=== PATIENT | female | born 1960 | race Caucasian/White ===

== ENCOUNTER → 2018-03-23 10:52 | Outpatient (CLI) | payer MEDICARE, SELFPAY ==
--- NOTE | 2018-03-23 11:02 | XR_ITS ---
XR chest 2V HISTORY: ITS.REASON: BRONCHITIS ORDERING PHYSICIAN: Kya Starks PATIENT AGE: 57 years COMPARISON: 05/07/2009 FINDINGS: The cardiomediastinal silhouette and pulmonary vascularity are within normal limits. The lungs are clear without infiltrates, suspicious nodules, or pleural effusions. No acute bony abnormalities. IMPRESSION: Negative chest, no acute finding
== END ==
PROVIDERS: PCP Nurse Practitioner Family; Visit Provider Nurse Practitioner Family
DX: J20.9 Acute bronchitis, unspecified (principal)
CPT/HCPCS: 71046

== ENCOUNTER → 2018-10-19 09:26 | Outpatient (CLI) | payer MEDICARE, SELFPAY ==
--- NOTE | 2018-10-19 09:30 | MM_ITS ---
MM Dig screening mamm BI w/CAD CAD Screening COMPARISON: Analog mammograms 09/15/2008 INDICATION: There is no personal or family history of breast cancer TECHNIQUE: Standard CC and MLO images were obtained. R2 CAD reviewed. FINDINGS: Moderate fibroglandular densities are seen in the central portions of both breasts. There are couple benign-appearing calcifications right breast. There is no suspicious lesion and there are no suspicious microcalcifications. IMPRESSION: Moderate breast density with no suspicious lesion seen BI-RADS Category: 2 Benign Finding(s) RECOMMENDED FOLLOW-UP: 1YR - 1 YEAR FOLLOW-UP (A letter has been sent to the patient regarding results of the study.)
--- NOTE | 2018-10-19 09:30 | CT_ITS ---
CT lung screening EXAM: CT LUNG LOW DOSE WO CONTRAST HISTORY: 30 pack-year smoking history, asymptomatic for lung cancer ITS.REASON: CURRENT TOBACCO USE ORDERING PHYSICIAN: Alexandre Frank MD PATIENT AGE: 58 years COMPARISON: None TECHNIQUE: The exam was performed on a GE Light Speed [address] scanner using 2.90 mGy CTDI. A low dose helical CT CHEST was performed on a multi-detector scanner. All CT scans at the facility use one or more dose reduction, viz: automated exposure control, ma/kV adjustment per patient size (including targeted exams where dose is matched to indication, i.e. head), or iterative reconstruction technique. The LDCT was performed in a facility that meets the criteria for the screening program. Data regarding this exam was submitted to ACR which is an approved registry. The order for this exam indicates that it came as a result of a lung cancer screening counseling shard decision-making visit that included all the elements required of such a visit including smoking cessation. The radiologist interpreting this exam meets the CMS criteria for the LDCT lung cancer screening program. The exam is reported using the Lung-RADS classification scale and reported to the ACR registry. NOTE: This study was performed for the specific purposes of lung cancer screening and is not an alternative to diagnostic chest CT. RADIATION DOSE: CTDI vol(CT dose Index-volume) = 2.90mG DLP (Dose Length Product) = 102.64 mGcm FINDINGS: Paraseptal and centrilobular emphysema along with hyperinflation and coarsening of bronchovascular markings No suspicious pulmonary nodules. No effusions or infiltrates. There is aneurysmal dilatation of the ascending aorta measuring up to 5 cm in AP dimension. This has a somewhat saccular appearance anteriorly. This involves the anterior wall of the mid ascending aorta 3 cm cephalad to the aortic valve region. Coronary artery calcifications are present. IMPRESSION: 1. Lung RADS Category: 1, negative for cancer 2. Other findings: Aneurysmal dilatation of the ascending aorta measuring up to 5 cm. Follow-up recommended. Suggest CT angiogram of the thoracic aorta for follow-up evaluation RECOMMENDATIONS: 1. CT angiogram of the thoracic aorta. 2. 12 month LDCT follow-up
== END ==
PROVIDERS: PCP Family Medicine; Visit Provider Family Medicine
DX: Z12.2 Encounter for screening for malignant neoplasm of respiratory organs (principal); Z87.891 Personal history of nicotine dependence; Z12.31 Encounter for screening mammogram for malignant neoplasm of breast
CPT/HCPCS: 77067

== ENCOUNTER → 2018-11-02 13:27 | Outpatient (CLI) | payer MEDICARE, SELFPAY ==
[2018-11-02 13:50] LABS: Blood Urea Nitrogen 13 mg/dL (7-18); Creatinine,Serum 0.71 mg/dL (0.55-1.02); Estimated Glomerular Filt Rate 85 ml/min (>60); GFR (African American) 102 ML/MIN (>60)
--- NOTE | 2018-11-02 14:18 | CT_ITS ---
CT angio chest HISTORY: Follow-up aortic aneurysm ITS.REASON: ASCENDING AORTA ANEURYSM ORDERING PHYSICIAN: Alexandre Frank MD PATIENT AGE: 58 years COMPARISON: 10/19/2018 TECHNIQUE: Axial images obtained following the administration of 75 mL of Isovue 370 . Sagittal, and coronal reformatted images are also generated and reviewed. All CT scans at the facility use one or more dose reduction, viz: automated exposure control, ma/kV adjustment per patient size (including targeted exams where dose is matched to indication, i.e. head), or iterative reconstruction technique. FINDINGS: There is saccular dilatation involving the anterior aspect of the ascending aorta. The total AP dimension of the ascending aorta is 4.7 cm with a maximum AP dimension of 3.7 cm. No evidence of dissection. The aneurysm begins 3.7 cm cephalad to the aortic root and extends for a length of 4.2 cm. The superior extent of the aneurysm is approximately 1 cm caudad to the origin of the right innominate artery. The great vessels have an unremarkable appearance. There is no evidence of central pulmonary embolus. No mediastinal or hilar mass. Normal heart size. No evidence of pericardial effusion. There are centrilobular emphysematous changes as well as biapical fibrotic change. No central obstructing lesions. No suspicious pulmonary nodules. No acute bony anomaly. Upper abdominal images are unremarkable. IMPRESSION: Ascending aortic aneurysm with an anterior saccular saccular component measuring up to 4.7 cm in maximum AP dimension. No evidence of dissection.
== END ==
PROVIDERS: Visit Provider Family Medicine
DX: I71.2 Thoracic aortic aneurysm, without rupture (principal)
CPT/HCPCS: 36415; 71275; 82565; 84520; Q9967

== ENCOUNTER → 2019-10-24 08:03 | Outpatient (CLI) | payer MEDICARE, SELFPAY ==
[2019-10-24 08:26] LABS: Blood Urea Nitrogen 17 mg/dL (7-18); Creatinine,Serum 0.76 mg/dL (0.55-1.02); Estimated Glomerular Filt Rate 78 ml/min (>60); GFR (African American) 94 ML/MIN (>60)
--- NOTE | 2019-10-24 08:33 | CT_ITS ---
PROCEDURE: CT LUNG SCREENING CLINICAL INDICATION: H/O NICOTINE DEPENDENCE 30+ pack-year smoking history, asymptomatic for lung cancer COMPARISON: LUNGSCREEN CT lung screening from 10/19/2018 CT ANGIO CHEST from 10/24/2019 TECHNIQUE: The exam was performed on a GE Light Speed [address] scanner using 2.90 mGy CTDI. A low dose helical CT CHEST was performed on a multi-detector scanner. All CT scans at the facility use one or more dose reduction, viz: automated exposure control, ma/kV adjustment per patient size (including targeted exams where dose is matched to indication, i.e. head), or iterative reconstruction technique. The LDCT was performed in a facility that meets the criteria for the screening program. Data regarding this exam was submitted to ACR which is an approved registry. The order for this exam indicates that it came as a result of a lung cancer screening counseling shard decision-making visit that included all the elements required of such a visit including smoking cessation. The radiologist interpreting this exam meets the CMS criteria for the LDCT lung cancer screening program. The exam is reported using the Lung-RADS classification scale and reported to the ACR registry. NOTE: This study was performed for the specific purposes of lung cancer screening and is not an alternative to diagnostic chest CT. RADIATION DOSE: CTDI vol(CT dose Index-volume) = 2.90mG DLP (Dose Length Product) = 93.77 mGcm FINDINGS: There is a saccular aneurysm involving the ascending aorta better demonstrated on the CT angiogram of the chest of the same day. Please see that report for further description. The aneurysm measures 4.7 cm in AP dimension Changes of COPD. No suspicious pulmonary nodules. There are scattered areas of scarring/fibrotic change OTHER FINDINGS: Coronary artery calcifications IMPRESSION: Lung rads category 1, negative Saccular aneurysm of the ascending aorta as described in the CT angiogram report of the same day. Recommend continue LDCT screening exam in 12 months Dictated by: Juan M Grove MD 10/25/2019 16:38 Electronically signed by Juan M Grove MD in [place] 10/28/2019 08:16
--- NOTE | 2019-10-24 08:34 | CT_ITS ---
PROCEDURE: CT ANGIO CHEST CLINCIAL INDICATION: AORTIC ANEURYSM,H/O NICOTINE DEPENDENCE Follow-up thoracic aortic aneurysm COMPARISON: [facility] CT angio chest from 11/28/2018 TECHNIQUE: IV Contrast: 70ML OPTIRAY 350 Axial images obtained with sagittal and coronal reformats. All CT scans at the facility use one or more dose reduction, viz: automated exposure control, ma/kV adjustment per patient size (including targeted exams where dose is matched to indication, i.e. head), or iterative reconstruction technique. FINDINGS: Saccular dilatation of all the anterior aspect of the ascending measuring maximum 4.7 cm AP and 3.6 cm cephalad caudad. This is not significantly changed. There is no evidence of aortic dissection. Mild atheromatous changes are present in the aortic arch. Coronary artery calcifications are present. Calcified nodes are present in the right hilum. No evidence of pulmonary embolus. No mediastinal or hilar mass. Upper abdominal images show no acute finding. IMPRESSION: No change saccular aneurysm of the ascending thoracic aorta measuring up to 4.7 cm in maximum AP dimension. No evidence of aortic dissection Dictated by: Juan M Grove MD 10/25/2019 16:45 Electronically signed by Juan M Grove MD in [place] 10/25/2019 16:45
== END ==
PROVIDERS: PCP Family Medicine; Visit Provider Family Medicine
DX: Z87.891 Personal history of nicotine dependence (principal); Z12.2 Encounter for screening for malignant neoplasm of respiratory organs; I71.2 Thoracic aortic aneurysm, without rupture
CPT/HCPCS: 36415; 71275; 82565; 84520; Q9967

== ENCOUNTER → 2020-07-19 09:59 | Outpatient (CLI) | payer MEDICARE, SELFPAY ==
[2020-07-19 10:58] LABS: Chloride 106 mmol/L (98-107); Sodium 144 mmol/L (136-145)
[2020-07-19 11:01] LABS: Blood Urea Nitrogen 14 mg/dl (7-17); Calcium 9.6 mg/dl (8.4-10.2); Carbon Dioxide 27 mmol/L (22.0-30.0); Estimated Glomerular Filt Rate 85 ml/min (>60); GFR (African American) 103 ML/MIN (>60); Glucose 108 mg/dl (74-100)
[2020-07-19 11:15] LABS: Troponin I < 0.01 ng/ml (0.00-0.034)
== END ==
PROVIDERS: Visit Provider Family Medicine
DX: I20.8 Other forms of angina pectoris (principal)
CPT/HCPCS: 36415; 80048; 84484

== ENCOUNTER → 2020-10-02 06:12 | Outpatient (CLI) | payer MEDICARE, SELFPAY ==
--- NOTE | 2020-10-02 | CA_ITS ---
APPROVED REPORT Exam: Exercise Treadmill Technologist: Celine Good Ht: 5 ft 2 in Wt: 141 lbs BSA: 1.65 m2 HR: 69 bpm BP: 133/77 mmHg Indications: Angina at rest Medical History Medications: Lisinopril,,,,, Atorvastatin,,,,, Stress Test Details Test: Padilla HR Resting HR: 75 bpm Max Heart Rate (APMHR): 160 bpm Max HR Achieved: 136 bpm Target HR (85% APMHR): 136 bpm % of APMHR: 85 Recovery HR: 81 bpm BP Resting BP: 133.0/77.0 mmHg Max BP: 150.0/80.0 mmHg Recovery BP: 127.0/71.0 mmHg ECG Clinical Exercise duration: 07:15 min Highest Stage Achieved: Exercise capacity: 10.1 METs Stress ECG Conclusion Resting ECG: Normal sinus rhythm Patient exercised 7:15 on Padilla Protocol. Test stopped due to shortness of air, fatigue. Symptoms: No chest pain. Arrhythmias/Ectopy: None ST-T Changes: Allowing for motion artifact, the ST response to exercise is normal. Conclusion: Normal GXT. Myoview images reported seprately. Test Summary REST . . . . . . . Sitting REST . . . . . . . Standing REST 02:52 0.0 0.0 75 . 133/ 77 . . Stage 1 01:00 10.0 1.7 . . . . . Stage 1 02:00 10.0 1.7 103 . . . . Stage 1 . . . . . . . Shortness of Breath Stage 1 03:00 10.0 1.7 105 . 146/ 80 . . Stage 2 01:00 12.0 2.5 113 . . . . Stage 2 02:00 12.0 2.5 122 . . . . Stage 2 . . . . . . . Myoview Injected Stage 2 03:00 12.0 2.5 125 . 150/ 80 . . Stage 3 01:00 14.0 3.4 134 . . . . Stage 3 01:15 14.0 3.4 136 . . . Stop exercise at 07:15 RECOVERY 01:00 0.0 0.0 115 . . . . RECOVERY 02:00 0.0 0.0 99 . 132/ 70 . . RECOVERY 03:00 0.0 0.0 90 . 144/ 69 . . RECOVERY 04:00 0.0 0.0 81 . 144/ 69 . . RECOVERY 05:00 0.0 0.0 81 . 127/ 71 . . RECOVERY 05:31 0.0 0.0 80 . 127/ 71 . . Electronically signed by : Raymond Shine, 10/03/2020 05:50:44
--- NOTE | 2020-10-02 06:20 | NM_ITS ---
APPROVED REPORT Exam: Nuclear Stress Test Indication: Chest pain, HTN, High cholesterol, Tobacco use Patient Location: Outpatient Stress Tech: Celine Good NM Tech:Hilary Higgins, ARRT, RT (R)(N) Ht: 5 ft 2 in Wt: 141 lbs Bra Size: 36C HR: 69 bpm BP: 133/77 mmHg BSA: 1.65 m2 BMI: 25.7 History: Chest pain, HTN, High cholesterol, Tobacco use Procedure: Patient exercised on Padilla protocol 7:15 minutes and sec, resting heart rate 69 bpm, resting blood pressure 133/77 mmHg, with exercise maximum heart rate achived was 136 bpm which is 85 % of the maximum predicted heart rate and blood pressure was 150/80 mmHg. Test was stopped due to SOA and fatigue. Patient denied any complaint of chest pain. Patient has Good exercise capacity, achieved 10.1 METs of workload on treadmill, the blood pressure response to exercise was Adequate. Electrocardiogram Resting electrocardiogram shows sinus rhythm, with exercise there is less than 1.[address] segment depression noted from the baseline EKG. The EKG portion of the exercise Myoview is negative for ischemia. Cardiac Stress and Resting SPECT Images: Cardiac Stress and Resting SPECT images were obtained using technetium 99m Myoview 31.5 mCi stress and 9.68 mCi at rest. Gated SPECT for analysis of segmental wall motion and calculation of the ejection fraction also done. Cardiac stress and resting SPECT images show uniform myocardial activity without segmental perfusion abnormality, computer derived ejection fraction is 60% with no regional wall motion abnormality, right ventricle is normal size and contractility. Conclusion: 1. The EKG portion of the exercise Myoview is negative for ischemia, patient has good exercise capacity achieved 10.1 mets of workload on treadmill, the blood pressure response to exercise was adequate, there was no exercise-induced chest discomfort. 2. No scintigraphic evidence of reversible ischemia seen, computer derived ejection fraction is 60% with no regional wall motion abnormality, right ventricle is normal size and contractility. 3. Normal exercise Myoview study. Electronically signed by : Raymond Shine, 10/03/2020 06:05:20
--- NOTE | 2020-10-02 08:18 | HMH.ITSHM ---
Current Home Medications as stated by this patient Cici Waddell or motor vehicle representative. []LISINOPRIL ATORVASTATIN
== END ==
PROVIDERS: PCP Family Medicine; Visit Provider Family Medicine
DX: I20.8 Other forms of angina pectoris (principal); I10 Essential (primary) hypertension; Z86.73 Personal history of transient ischemic attack (TIA), and cerebral infarction without residual deficits
CPT/HCPCS: 78452; 93017; A9502

== ENCOUNTER → 2020-10-16 08:16 | Outpatient (CLI) | payer MEDICARE, SELFPAY ==
--- NOTE | 2020-10-16 08:29 | CT_ITS ---
PROCEDURE: CT CHEST WO CON CLINICAL INDICATION: THORACIC AAA,PULMONARY NODULES followup, thoracic aneurysm, lung nodules prior cta and LDLS, 10/24/19 no current symptoms COMPARISON: CT CT ANGIO CHEST from 10/24/2019 TECHNIQUE: Axial images obtained with sagittal and coronal reformats. All CT scans at the facility use one or more dose reduction, viz: automated exposure control, ma/kV adjustment per patient size (including targeted exams where dose is matched to indication, i.e. head), or iterative reconstruction technique. FINDINGS: There is saccular dilatation the ascending aorta anteriorly which measures 4.9 cm AP and 3.8 cm transverse. The area of saccular dilatation measures 4.9 cm cephalad caudad. This has increased in size since the previous exam previously measuring 4.7 cm AP and 3.5 cm transverse and 3.6 cm cephalad caudad. Today's exam is performed without contrast. Therefore, cannot evaluate for dissection. There are few small calcified nodes within the right hilum. Coronary artery calcifications are present. No mediastinal or hilar mass or adenopathy. COPD with scattered areas of scarring. No lobar consolidation or collapse. No effusions. A nodules present in the retroperitoneum on the right measuring 9 mm seen on the most inferior image possibly due to an exophytic renal cyst. IMPRESSION: Saccular aneurysm of the ascending aorta anteriorly slightly increased in size 4.9 cm AP and 3.8 cm transverse and 4.9 cm cephalad caudad. Other nonacute findings as described above with COPD Dictated by: Juan M Grove MD 10/17/2020 13:03 Juan M Grove MD in [place] 10/17/2020 13:03
== END ==
PROVIDERS: PCP Family Medicine; Visit Provider Thoracic Surgery (Cardiothoracic Vascular Surgery)
DX: I71.2 Thoracic aortic aneurysm, without rupture (principal); I20.8 Other forms of angina pectoris; I10 Essential (primary) hypertension; Z86.73 Personal history of transient ischemic attack (TIA), and cerebral infarction without residual deficits
CPT/HCPCS: 71250

== ENCOUNTER → 2020-10-31 08:18 | Outpatient (CLI) | payer MEDICARE, SELFPAY ==
--- NOTE | 2020-10-31 08:21 | CT_ITS ---
PROCEDURE: CT LUNG SCREENING CLINICAL INDICATION: SCREENING current smoker 30 pack year smoking history copd prior 10/24/19 COMPARISON: CT CT CHEST WO CON from 10/16/2020 TECHNIQUE: The exam was performed on a GE Light Speed [address] scanner using 2.90 mGy CTDI. A low dose helical CT CHEST was performed on a multi-detector scanner. All CT scans at the facility use one or more dose reduction, viz: automated exposure control, ma/kV adjustment per patient size (including targeted exams where dose is matched to indication, i.e. head), or iterative reconstruction technique. The LDCT was performed in a facility that meets the criteria for the screening program. Data regarding this exam was submitted to ACR which is an approved registry. The order for this exam indicates that it came as a result of a lung cancer screening counseling shard decision-making visit that included all the elements required of such a visit including smoking cessation. The radiologist interpreting this exam meets the CMS criteria for the LDCT lung cancer screening program. The exam is reported using the Lung-RADS classification scale and reported to the ACR registry. NOTE: This study was performed for the specific purposes of lung cancer screening and is not an alternative to diagnostic chest CT. RADIATION DOSE: CTDI vol(CT dose Index-volume) = 2.90mG DLP (Dose Length Product) = 108.38 mGcm FINDINGS: COPD changes. No suspicious nodules OTHER FINDINGS: No change saccular aneurysm involving the ascending aorta measuring up to 4.9 cm. Small exophytic nodules present along the upper pole of the right kidney at 1 cm.. There is some asymmetric density in the upper breast medially. Suggest mammogram and possibly ultrasound for further evaluation. IMPRESSION: Lung-RADS Category 1 Negative Follow-up: Continue annual screening with LDCT in 12 months No change ascending aortic aneurysm. Asymmetric increased density left breast medially. Suggest mammogram and ultrasound. Dictated by: Juan M Grove MD 11/12/2020 11:07 Juan M Grove MD in [place] 11/12/2020 11:07
== END ==
PROVIDERS: PCP Family Medicine; Visit Provider Family Medicine
DX: Z87.891 Personal history of nicotine dependence (principal); Z12.2 Encounter for screening for malignant neoplasm of respiratory organs

== ENCOUNTER → 2021-04-15 10:25 | Outpatient (CLI) | payer MEDICARE, SELFPAY ==
[2021-04-15 11:19] LABS: Blood Urea Nitrogen 14 mg/dl (7-17); Estimated Glomerular Filt Rate 73 ml/min (>60); GFR (African American) 89 ML/MIN (>60)
== END ==
PROVIDERS: Visit Provider Thoracic Surgery (Cardiothoracic Vascular Surgery)
DX: I71.2 Thoracic aortic aneurysm, without rupture (principal)
CPT/HCPCS: 36415; 82565; 84520

== ENCOUNTER → 2021-04-16 09:53 | Outpatient (CLI) | payer MEDICARE, SELFPAY ==
--- NOTE | 2021-04-16 10:00 | CT_ITS ---
PROCEDURE: CT ANGIO CHEST CLINCIAL INDICATION: THORACIC AORTIC ANEURYSM W/O RUPTURE Follow up COMPARISON: CT CT CHEST WO CON from 10/16/[address] LUNG SCREENING from 10/31/2020 TECHNIQUE: IV Contrast: 70ML Isovue 370 Axial images obtained with sagittal and coronal reformats. All CT scans at the facility use one or more dose reduction, viz: automated exposure control, ma/kV adjustment per patient size (including targeted exams where dose is matched to indication, i.e. head), or iterative reconstruction technique. FINDINGS: HEART AND MEDIASTINAL STRUCTURES: Saccular aneurysm once again noted involving the anterior aspect of the ascending aorta. The aneurysm appears stable measuring 4.2 cm cephalad caudad and 3.8 cm transverse. The maximum AP dimension the aorta at this region is 4.9 cm. These measurements are similar to the previous exam. No evidence of dissection. There is a mild amount of mural thrombus along the anterior aspect of the aneurysm and aortic arch. There is approximately 50 percent stenosis involving the proximal aspect of the left common carotid artery at its takeoff from the aortic arch. No mediastinal or hilar mass. No evidence of pericardial effusion or central pulmonary embolus. LUNGS AND PLEURAL SPACES: There mild biapical fibrotic changes with COPD, centrilobular, and paraseptal emphysematous changes. BONY STRUCTURES: No acute bony abnormalities apparent. UPPER ABDOMEN: No change small exophytic nodule along the superior pole of the right kidney ADDITIONAL FINDINGS: No other significant abnormalities. IMPRESSION: No change in the saccular aneurysm of the ascending aorta as described above. 50 percent stenosis of the proximal aspect of the left common carotid artery Overall stable CT appearance of the chest Dictated by: Juan M Grove MD 04/17/2021 11:42 Juan M Grove MD in [place] 04/17/2021 11:42
== END ==
PROVIDERS: PCP Family Medicine; Visit Provider Thoracic Surgery (Cardiothoracic Vascular Surgery)
DX: I71.2 Thoracic aortic aneurysm, without rupture (principal)
CPT/HCPCS: 71275; Q9967

== ENCOUNTER → 2021-05-22 12:00 | Outpatient (CLI) | payer MEDICARE, SELFPAY ==
[2021-05-22 12:35] LABS: Basophils % 0.5 % (0.1-2.0); Eosinophils # 0.2 K/mm3 (0.0-0.4); Hematocrit 41.4 % (37.0-47.0); Lymphocytes # 2.8 K/mm3 (0.7-4.5); Mean Corpuscular HGB Conc 33.9 g/dL (31.8-35.4); Mean Corpuscular Hemoglobin 29.5 pg (27.0-31.2); Mean Platelet Volume 8.3 fl (7.4-10.4); Monocytes # 0.4 K/mm3 (0.1-1.0); Monocytes % 4.8 % (1.7-9.3); Neutrophils # 4.7 K/mm3 (1.8-7.8); Neutrophils % 57.8 % (37.0-80.0); Platelet Count 188 K/mm3 (142-424); Red Blood Count 4.76 M/mm3 (4.20-5.40); Red Cell Distribution Width 15.3 % (11.5-17.5); White Blood Count 8.1 K/mm3 (4.8-10.8)
[2021-05-22 13:09] LABS: Anion Gap 13.4 mEq/L (5-15); Blood Urea Nitrogen 13 mg/dl (7-17); Calcium 9.7 mg/dl (8.4-10.2); Carbon Dioxide 29 mmol/L (22.0-30.0); Chloride 105 mmol/L (98-107); Estimated Glomerular Filt Rate 85 ml/min (>60); GFR (African American) 103 ML/MIN (>60); Glucose 107 mg/dl (74-100); Potassium 4.4 mmoL/L (3.5-5.1); Sodium 143 mmol/L (136-145)
== END ==
PROVIDERS: Visit Provider Internal Medicine
DX: R07.9 Chest pain, unspecified (principal); Z72.0 Tobacco use; Z01.812 Encounter for preprocedural laboratory examination; Z11.52 Encounter for screening for COVID-19
CPT/HCPCS: 80048; 85025; U0003

== ENCOUNTER 2021-05-28 08:16 | Day surgery (SDC) | payer MEDICARE, SELFPAY ==
[2021-05-28] VITALS (20 sets, daily range): BP systolic 104–140; BP diastolic 55–75; PULSE 55–87; RESP 13–18; TEMP 36.7–36.8; O2SAT 92–98; BMI 24.7
--- NOTE | 2021-05-28 | IR_ITS ---
APPROVED REPORT Patient Location: Outpatient Human Resources Support Specialist: FAIZA Martell RT (R) PROCEDURES Left heart catheterization Left ventriculogram Selective coronary artery angiogram Catheter placed in left subclavian artery Left subclavian artery angiogram with angiography the left internal mammary artery INDICATION Preoperative evaluation for a sending aortic aneurysm repair, Classic angina pectoris, Informed consent was obtained prior to the procedure. COMPLICATIONS None Estimated Blood Loss: Less than 10 mls TECHNIQUE One percent lidocaine was used to anesthetize the right groin. The right femoral artery was accessed via the Seldinger technique. A 4-Greenlandic sheath was placed in the right femoral artery. The JL-5 and JR-4 catheter was also used to perform left heart catheterization left ventriculogram and selective coronary angiogram. At the end of the procedure the patient was transferred to the post-op holding area in stable condition for arterial sheath removal. ANGIOGRAPHIC RESULTS The left main artery Is short and normal The left anterior descending artery Has an ostial 70 to 80% stenosis followed by poststenotic dilatation followed by an additional proximal 40% stenosis The circumflex artery Is nondominant and has proximal smooth 30% stenosis The right coronary artery Is a dominant vessel and has a long mid vessel 50 to 60% stenosis with a distal 50% stenosis and an additional 40 to 50% stenosis in the proximal posterior lateral branch The NARAYANAN ventriculogram reveals Normal 65% The left ventricular end-diastolic pressure 10 mmHg The left subclavian is widely patent and gives rise to a widely patent left internal mammary artery IMPRESSION Patient will be referred back to CT surgery. Initially the left main artery appears stenosed however with subsequent angiography the left main is actually widely patent just short and supplies a widely patent circumflex artery. The LAD is severely stenosed in the ostial segment Moderate to severe disease throughout the right coronary as described above Normal ejection fraction Normal left ventricular end-diastolic pressure Widely patent left subclavian artery and left internal mammary artery PLAN 1. Refer back to CT surgery for surgical correction of the ascending aortic aneurysm and coronary bypass surgery. Electronically signed by : Scott Dubois, 05/28/2021 10:43:47
[2021-05-28 08:42] LABS: Coronavirus 19, PCR Not Detected (NotDetected); Influenza A, PCR Not Detected (NotDetected); Influenza B, PCR Not Detected (NotDetected)
== END 2021-05-28 13:41 | disposition home or self-care (01) ==
PROVIDERS: PCP Family Medicine; Visit Provider Internal Medicine
DX: I25.10 Atherosclerotic heart disease of native coronary artery without angina pectoris (principal); Z20.822 Contact with and (suspected) exposure to COVID-19; I65.29 Occlusion and stenosis of unspecified carotid artery; I71.2 Thoracic aortic aneurysm, without rupture; I10 Essential (primary) hypertension; F17.210 Nicotine dependence, cigarettes, uncomplicated; Z79.899 Other long term (current) drug therapy
CPT/HCPCS: 36225; 93458; 99152; C1725; C1769; J1644; Q9967; U0003

== ENCOUNTER → 2021-11-21 09:17 | Outpatient (CLI) | payer MEDICARE, SELFPAY ==
--- NOTE | 2021-11-21 09:24 | CA_ITS ---
APPROVED REPORT Manager Process Improvement: ARCENIO Laterality: Bilateral Study Quality: Excellent Indications: Hx- stroke, 2 mo s/pCBG, MVR, Aneurysm repair, amaurosis fugax of Right eye Risk Factors Hypertension: CAD, Stroke PAD Smoking Doppler Spectral Velocity Analysis ECA (R) 110.40/18.60 cm/s ECA (L) 137.10/22.30 cm/s dICA (R) 127.10/46.20 cm/s dICA (L) 114.00/48.80 cm/s Silva (R) 68.10/25.70 cm/s Silva (L) 108.80/40.30 cm/s pICA (R) 84.10/36.60 cm/s pICA (L) 112.20/42.80 cm/s dCCA (R) 65.40/22.70 cm/s dCCA (L) 84.80/27.00 cm/s pCCA (R) 66.70/24.80 cm/s pCCA (L) 88.00/25.00 cm/s Vert (R) 41.40/17.30 cm/s Vert (L) 42.80/15.40 cm/s ICA/CCA 1.90 ICA/CCA 1.30 Findings Duplex evaluation demonstrates stenosis of the right proximal internal carotid artery in the range of 20-49% with PSV <140 cm/sec, EDV <100 cm/sec, and IC/CC Ratio <4.0. Duplex evaluation demonstrates stenosis of the left proximal internal carotid artery in the range of 20-49% with PSV <140 cm/sec, EDV <100 cm/sec, and IC/CC Ratio <4.0. Duplex evaluation demonstrates antegrade flow of the bilateral Vertebral Arteries. Conclusion Duplex evaluation demonstrates stenosis of the right proximal internal carotid artery in the range of 20-49% with PSV <140 cm/sec, EDV <100 cm/sec, and IC/CC Ratio <4.0. Duplex evaluation demonstrates stenosis of the left proximal internal carotid artery in the range of 20-49% with PSV <140 cm/sec, EDV <100 cm/sec, and IC/CC Ratio <4.0. Duplex evaluation demonstrates antegrade flow of the bilateral Vertebral Arteries. Electronically signed by : Juan M Grove MD 11/21/2021 14:26:57
== END ==
PROVIDERS: PCP Family Medicine; Visit Provider Family Medicine
DX: I63.00 Cerebral infarction due to thrombosis of unspecified precerebral artery (principal)
CPT/HCPCS: 93880

== ENCOUNTER 2021-11-26 14:47 | Inpatient (IN) | payer MEDICARE, SELFPAY ==
[2021-11-26] VITALS (45 sets, daily range): BP systolic 85–139; BP diastolic 55–89; PULSE 9–101; RESP 13–31; TEMP 36.4–36.6; O2SAT 91–100; BMI 22.8; BMI 23.8
--- NOTE | 2021-11-26 | IR_ITS ---
APPROVED REPORT Patient Location: Emergent [facility] Manager: FAIZA Smyth RT (R) PROCEDURES Left heart catheterization Left ventriculogram Selective coronary angiogram Thrombectomy to the mid right coronary artery Drug-eluting stent deployment to the ostial proximal mid and distal dominant chronically occluded right coronary in a contiguous manner Left internal mammary angiography Selective engagement of the saphenous vein graft to the dominant right coronary artery Right femoral venous access Placement of temporary transvenous pacemaker Direct-current cardioversion INDICATION Acute inferior lateral right ventricular ST elevation myocardial infarction, Third-degree heart block, Cardiogenic shock, Multifocal ventricular tachycardia, Coronary artery disease, History of coronary bypass surgery Informed consent was obtained prior to the procedure. COMPLICATIONS None TECHNIQUE One percent lidocaine used to anesthetize the right groin. The right femoral artery was accessed via the Seldinger technique and a 5 Albanian sheath was placed in the right femoral artery. A JL 4, JR4 catheter were used to perform left heart catheterization, left ventriculogram selective coronary angiography as well as selective engagement of the 2 vein grafts and the left internal mammary artery. At the end of the procedure the patient was transferred to the postop holding area in stable condition for sheath removal. ANGIOGRAPHIC RESULTS The left main artery Normal The left anterior descending artery Has an ostial 20% stenosis followed by a proximal concentric 30% stenosis. There is a mid vessel eccentric 60% stenosis along a tortuous bend. The circumflex artery Is a nondominant vessel and has a proximal 20% stenosis followed by proximal concentric 30% stenosis with 30% stenoses in the first obtuse marginal artery The right coronary artery Is a dominant vessel and has an ostial 40% stenosis followed by a proximal concentric 70% stenosis followed by occlusion immediately after an RV marginal branch. The NARAYANAN ventriculogram reveals Normal 60% with mild inferior wall hypokinesis The left ventricular end-diastolic pressure 15 mm Hg Left internal mammary artery is proximally occluded Saphenous vein graft to right coronary artery is proximally thrombosed IMPRESSION Acute thrombosis of the saphenous vein graft to the dominant right coronary artery Successful reconstruction of a chronically occluded [place] dominant right coronary artery with placement of 4 drug-eluting stents from the ostial through proximal mid and distal segments in a contiguous manner restoring CEE 0 flow to CEE III flow Normal ejection fraction with mild regional wall motion abnormality Borderline LVEDP Occluded left internal mammary artery to an LAD which is diseased mildly in the proximal segment and has a focal moderate stenosis in the midportion along a 1.5 mm in diameter LAD segment Third-degree heart block which is now resolved into sinus rhythm with intermittent paroxysmal atrial fibrillation PLAN 1. Brilinta 90 twice daily plus aspirin 81 mg daily 2. Lovenox therapeutic 1 mg/kg subcu twice daily as long as patient remains in atrial fibrillation 3. Supportive care for the next 48 hours 4. LDL less than 55 to be achieved with high intensity statin 5. Once hemodynamically stable patient should be started on low-dose carvedilol plus MIGUEL inhibitors unless otherwise contraindicated and uptitrated as tolerated 6. Cardiac rehabilitation 7. Avoidance of tobacco products 8. At this point I recommend medical management for the LAD lesion. The MORAN graft is down and patient has mild [place] disease in the left system. The mid LAD stenosis is focal
[2021-11-26 14:10] LABS: Coronavirus 19, PCR Not Detected (NotDetected); Influenza A, PCR Not Detected (NotDetected); Influenza B, PCR Not Detected (NotDetected)
[2021-11-26 14:15] LABS: Basophils # 0.1 K/mm3 (0-0.2); Basophils % 0.5 % (0.1-2.0); Eosinophils # 0.2 K/mm3 (0.0-0.4); Eosinophils % 1.6 % (0.1-12.0); Hematocrit 30.9 % (37.0-47.0); Hemoglobin 9.8 g/dL (12.2-16.2); Lymphocytes % 23.1 % (10-50); Mean Corpuscular HGB Conc 31.8 g/dL (31.8-35.4); Mean Corpuscular Hemoglobin 27.9 pg (27.0-31.2); Mean Corpuscular Volume 87.9 fl (81-99); Mean Platelet Volume 8.5 fl (7.4-10.4); Monocytes # 0.5 K/mm3 (0.1-1.0); Neutrophils # 9.3 K/mm3 (1.8-7.8); Neutrophils % 70.8 % (37.0-80.0); Platelet Count 212 K/mm3 (142-424); Red Blood Count 3.52 M/mm3 (4.20-5.40); Red Cell Distribution Width 16.8 % (11.5-17.5); White Blood Count 13.1 K/mm3 (4.8-10.8)
[2021-11-26 14:25] LABS: Anion Gap 8.8 mEq/L (5-15); Blood Urea Nitrogen 14 mg/dl (7-17); Carbon Dioxide 21 mmol/L (22.0-30.0); Chloride 109 mmol/L (98-107); Creatinine Clearance Estimated 55 mL/min (50-200); Estimated Glomerular Filt Rate 73 ml/min (>60); GFR (African American) 88 ML/MIN (>60); Glucose 111 mg/dl (74-100); Sodium 136 mmol/L (136-145)
[2021-11-26 14:36] LABS: Troponin I 0.07 ng/ml (0.00-0.034)
[2021-11-26 14:51] LABS: Potassium 2.8 mmoL/L (3.5-5.1)
[2021-11-26 14:58] LABS: CATHL Activated Clotting Time > 400 SEC (74-125)
--- NOTE | 2021-11-26 15:17 | HMH.CNCARD ---
History of Present Illness Consult date: 11/26/21 Requesting physician: Alexandre Frank Consult reason: chest pain Chief complaint: chest pain History of present illness: This is a 61-year-old white female who presented directly to the cardiac catheterization laboratory via EMS for chest pain. The patient reports that she was at [facility] today shopping and felt fine. She reports that when she got home from shopping at [facility] she had sudden onset of substernal chest pressure and heaviness. The patient states that it radiated to her left arm. It was associated with shortness of breath and nausea. The patient states that she did not feel well. She called EMS and was found to have an ST elevation myocardial infarction and was brought directly to the cardiac catheterization laboratory. She does have a history of coronary artery disease with CABG x2 and repair of an ascending aortic aneurysm in May 2021. The patient reports that she continues to smoke but is down to only 5 cigarettes a day. She denies any fever, chills, vomiting, diarrhea, PND or orthopnea. [facility] History I have reviewed the patient's past medical history: Yes Medical History: Reports:: Aneurysm, Atherosclerotic Heart Disease, Atrial Fibrillation, Coronary Artery Disease, Hyperlipidemia, Hypertension, Myocardial Infarction Denies:: Cancer, Diabetes Mellitus Type 1, Diabetes Mellitus Type 2, MRSA, Seizures *Have you ever received a pneumonia vaccine?: No *Have you received a flu vaccine this season?: Yes Other Surgeries: Yes: No Previous Surgery, CABG, Cardiac Catheterization, Coronary Stent Amputation: No Fractures: No - *Social History Smoking Status: Current every day smoker Tobacco Type: cigarettes # Packs/Day (cigarettes): 1 Alcohol Intake: never Substance Use Type: denies use *Occupational Status:: unemployed Housing: house Household Members: spouse *Travel in the last 8 weeks: None Family Hx:: Cancer Meds Home Medications Medication Instructions Recorded Confirmed Type aspirin 81 mg tablet,delayed 81 mg PO DAILY 05/22/21 08/12/21 History release atorvastatin 80 mg tablet 80 mg PO DAILY tab 05/22/21 08/12/21 History potassium 99 mg tablet 99 mg PO DAILY tab 05/22/21 08/12/21 History lisinopril 5 mg tablet 5 mg PO DAILY #90 tab 07/08/21 08/12/21 Rx metoprolol succinate 25 mg 12.5 mg PO DAILY #90 tab 07/08/21 08/12/21 Rx tablet,extended release 24 hr Allergies Allergy/AdvReac Type Severity Reaction Status Date / Time Penicillins [PENICILLINS] Allergy Unknown I-RASH Verified 08/12/21 13:16 Exam Vital signs and Labs for Last 24 Hours: Pulse Resp BP Pulse Ox 87 17 121/72 95 11/26/21 14:57 11/26/21 14:57 11/26/21 14:57 11/26/21 14:57 Laboratory Results - last 24 hr 11/26/21 14:07: WBC 13.1 H, RBC 3.52 L, Hgb 9.8 L, Hct 30.9 L, MCV 87.9, MCH 27.9, MCHC 31.8, RDW 16.8, Plt Count 212, MPV 8.5, Neut % (Auto) 70.8, Lymph % (Auto) 23.1, [place] % (Auto) 4.0, Eos % (Auto) 1.6, Baso % (Auto) 0.5, Neut # (Auto) 9.3 H, Lymph # (Auto) 3.0, [place] # (Auto) 0.5, Eos # (Auto) 0.2, Baso # (Auto) 0.1 11/26/21 14:07: Sodium 136, Potassium 2.8 L*, Chloride 109 H, Carbon Dioxide 21 L, Anion Gap 8.8, BUN 14, Creatinine 0.80, Estimated Creat Clear 55, Estimated GFR 73, Est GFR ( Amer) 88, Glucose 111 H, Calcium 7.0 L, Troponin I 0.07 H 11/26/21 14:07: SARS-CoV-2 (PCR) Not detected, Influenza A Untype (PCR) Not detected, Influenza Type B (PCR) Not detected 11/26/21 14:50: Activated Clotting Time > 400 H* I & O for Last 24 hours: Intake & Output 11/23/21 11/24/21 11/25/21 11/26/21 23:59 23:59 23:59 23:59 Weight 129 lb Narrative: EKG shows inferior STEMI. - Constitutional no acute distress, average body habitus - *Routine HEENT Exam Head: Present: normocephalic, atraumatic Eye: Present: EOMI, PERRL ENT: Present: mucous membranes moist - *Routine Neck Exam Present: supple, full ROM, normal carotid upstroke. Absent: JVD, carotid
[2021-11-26 15:43] LABS: NT Pro Brain Natriuretic Pep. 550 pg/mL (0-125)
[2021-11-26 16:08] LABS: Anion Gap 8.8 mEq/L (5-15); Blood Urea Nitrogen 13 mg/dl (7-17); Calcium 6.9 mg/dl (8.4-10.2); Carbon Dioxide 20 mmol/L (22.0-30.0); Chloride 111 mmol/L (98-107); Creatinine Clearance Estimated 55 mL/min (50-200); Estimated Glomerular Filt Rate 64 ml/min (>60); GFR (African American) 77 ML/MIN (>60); Glucose 109 mg/dl (74-100); Sodium 137 mmol/L (136-145)
--- NOTE | 2021-11-26 16:10 | PC.NURSE ---
pt arrived to the floor from farm lab[facility] @ [phone]
[2021-11-26 16:20] LABS: Troponin I 0.07 ng/ml (0.00-0.034)
[2021-11-26 16:28] LABS: Potassium 2.8 mmoL/L (3.5-5.1)
[2021-11-26 16:31] LABS: CATHL Activated Clotting Time 316 SEC (74-125)
[2021-11-26 16:31] LABS: CATHL Activated Clotting Time 156 SEC (74-125)
[2021-11-26 16:32] LABS: CATHL Activated Clotting Time 345 SEC (74-125)
--- NOTE | 2021-11-26 16:47 | HMH.HP ---
*Admission Date: 11/26/21 *Chief complaint: Chest pain *History of present illness: 61-year-old female with prior history of coronary artery disease status post CABG x2 and prior stroke developed right arm pain with chest pain and pressure at home. Patient waited approximately 15 minutes for symptoms to resolve before EMS was contacted. Patient had associated diaphoresis and nausea. Patient also had a syncopal event at home when trying to use the bathroom. Patient was brought from home directly to the [facility] where she underwent left heart catheterization for STEMI. Patient underwent stenting of the right dominant coronary artery. During left heart catheterization she was noted to have complete heart block upon presentation which required transvenous pacing. Patient later converted to atrial fibrillation and was cardioverted to sinus rhythm. Patient reverted back to A. fib. Since arrival to the [facility] floor patient is back in sinus rhythm. Patient is now pain-free. [facility] History I have reviewed the patient's past medical history: Yes Medical History: Reports:: Aneurysm (Thoracic aorta), Atherosclerotic Heart Disease, Coronary Artery Disease, Cerebrovascular Accident, Hyperlipidemia, Hypertension Denies:: Cancer, Diabetes Mellitus Type 1, Diabetes Mellitus Type 2, MRSA, Seizures *Have you ever received a pneumonia vaccine?: No *Have you received a flu vaccine this season?: Yes Other Surgeries: Yes: No Previous Surgery, CABG, Cardiac Catheterization, Coronary Stent Amputation: No Fractures: No - *Social History Smoking Status: Current every day smoker Tobacco Type: cigarettes # Packs/Day (cigarettes): 1 Alcohol Intake: never Substance Use Type: denies use *Occupational Status:: unemployed Housing: house Household Members: spouse *Travel in the last 8 weeks: None Family Hx:: Cancer Review of Systems - Review of Systems Review of systems:: pertinent systems reviewed and negative unless documented below Meds Home Medications Medication Instructions Recorded Confirmed Type aspirin 81 mg tablet,delayed 81 mg PO DAILY 05/22/21 08/12/21 History release atorvastatin 80 mg tablet 80 mg PO DAILY tab 05/22/21 08/12/21 History potassium 99 mg tablet 99 mg PO DAILY tab 05/22/21 08/12/21 History lisinopril 5 mg tablet 5 mg PO DAILY #90 tab 07/08/21 08/12/21 Rx metoprolol succinate 25 mg 12.5 mg PO DAILY #90 tab 07/08/21 08/12/21 Rx tablet,extended release 24 hr Allergies Allergy/AdvReac Type Severity Reaction Status Date / Time Penicillins [PENICILLINS] Allergy Unknown I-RASH Verified 08/12/21 13:16 Exam Vital signs and Labs for Last 24 Hours: Pulse Resp BP Pulse Ox 75 16 118/67 96 11/26/21 16:00 11/26/21 16:00 11/26/21 16:00 11/26/21 16:00 Laboratory Results - last 24 hr 11/26/21 14:07: WBC 13.1 H, RBC 3.52 L, Hgb 9.8 L, Hct 30.9 L, MCV 87.9, MCH 27.9, MCHC 31.8, RDW 16.8, Plt Count 212, MPV 8.5, Neut % (Auto) 70.8, Lymph % (Auto) 23.1, [place] % (Auto) 4.0, Eos % (Auto) 1.6, Baso % (Auto) 0.5, Neut # (Auto) 9.3 H, Lymph # (Auto) 3.0, [place] # (Auto) 0.5, Eos # (Auto) 0.2, Baso # (Auto) 0.1 11/26/21 14:07: Sodium 136, Potassium 2.8 L*, Chloride 109 H, Carbon Dioxide 21 L, Anion Gap 8.8, BUN 14, Creatinine 0.80, Estimated Creat Clear 55, Estimated GFR 73, Est GFR ( Amer) 88, Glucose 111 H, Calcium 7.0 L, Troponin I 0.07 H 11/26/21 14:07: SARS-CoV-2 (PCR) Not detected, Influenza A Untype (PCR) Not detected, Influenza Type B (PCR) Not detected 11/26/21 14:07: NT-Pro-B Natriuret Pep 550 H 11/26/21 14:07: Sodium 137, Potassium 2.8 L*, Chloride 111 H, Carbon Dioxide 20 L, Anion Gap 8.8, BUN 13, Creatinine 0.90, Estimated Creat Clear 55, Estimated GFR 64, Est GFR ( Amer) 77, Glucose 109 H, Calcium 6.9 L, Troponin I 0.07 H 11/26/21 14:50: Activated Clotting Time > 400 H* 11/26/21 15:31: Activated Clotting Time 345 H* 11/26/21 15:52: Activated Clotting Time 316 H* 11/26/21 16:16: Activated Clotting Time 1
--- NOTE | 2021-11-26 21:00 | PC.NURSE ---
sat pt's HOB up to 30 degrees, groin site dressing CDI, will continue to monitor
[2021-11-27] VITALS (15 sets, daily range): BP systolic 114–143; BP diastolic 61–80; PULSE 68–84; RESP 18–26; TEMP 36.7–37.3; O2SAT 96–100; BMI 25.7
[2021-11-27 06:22] LABS: Basophils # 0.1 K/mm3 (0-0.2); Basophils % 0.4 % (0.1-2.0); Eosinophils % 0.2 % (0.1-12.0); Hematocrit 35.7 % (37.0-47.0); Lymphocytes # 2.2 K/mm3 (0.7-4.5); Mean Corpuscular HGB Conc 31.7 g/dL (31.8-35.4); Mean Corpuscular Hemoglobin 27.9 pg (27.0-31.2); Mean Corpuscular Volume 88.1 fl (81-99); Mean Platelet Volume 8.9 fl (7.4-10.4); Monocytes # 0.7 K/mm3 (0.1-1.0); Monocytes % 4.4 % (1.7-9.3); Neutrophils # 11.7 K/mm3 (1.8-7.8); Neutrophils % 79.8 % (37.0-80.0); Platelet Count 185 K/mm3 (142-424); Red Blood Count 4.06 M/mm3 (4.20-5.40); Red Cell Distribution Width 16.9 % (11.5-17.5); White Blood Count 14.7 K/mm3 (4.8-10.8)
[2021-11-27 06:31] LABS: Hemoglobin 11.2 g/dL (12.2-16.2)
[2021-11-27 06:37] LABS: Chloride 110 mmol/L (98-107); Potassium 4.2 mmoL/L (3.5-5.1); Sodium 139 mmol/L (136-145)
[2021-11-27 06:40] LABS: Anion Gap 10.2 mEq/L (5-15); Blood Urea Nitrogen 14 mg/dl (7-17); Calcium 8.7 mg/dl (8.4-10.2); Carbon Dioxide 23 mmol/L (22.0-30.0); Cholesterol 159 mg/dl (140-200); Creatinine Clearance Estimated 59 mL/min (50-200); Estimated Glomerular Filt Rate 85 ml/min (>60); GFR (African American) 103 ML/MIN (>60); Glucose 123 mg/dl (74-100); HDL Cholesterol 32 mg/dl (40-60); Triglycerides 152 mg/dl (30-150); VLDL Cholesterol 30 mg/dL (0-40)
[2021-11-27 06:44] LABS: Alanine Aminotransferase 38 U/L (12-78); Aspartate Amino Transferase 168 U/L (14-36); Bilirubin,Unconjugated 0.1 mg/dL (0.0-1.1)
--- NOTE | 2021-11-27 06:44 | HMH.ACPN2 ---
Internal Medicine - PN: Subj *Date: 11/27/21 *Time: 06:44 Interval history: No acute events overnight. Patient had some nausea treated with Zofran. She remains in sinus rhythm Exam Vital signs and Labs for Last 24 Hours: Temp Pulse Resp BP Pulse Ox 98.1 F 84 24 114/65 98 11/27/21 04:31 11/27/21 06:00 11/27/21 06:00 11/27/21 06:00 11/27/21 06:00 Laboratory Results - last 24 hr 11/26/21 14:07: WBC 13.1 H, RBC 3.52 L, Hgb 9.8 L, Hct 30.9 L, MCV 87.9, MCH 27.9, MCHC 31.8, RDW 16.8, Plt Count 212, MPV 8.5, Neut % (Auto) 70.8, Lymph % (Auto) 23.1, [place] % (Auto) 4.0, Eos % (Auto) 1.6, Baso % (Auto) 0.5, Neut # (Auto) 9.3 H, Lymph # (Auto) 3.0, [place] # (Auto) 0.5, Eos # (Auto) 0.2, Baso # (Auto) 0.1 11/26/21 14:07: Sodium 136, Potassium 2.8 L*, Chloride 109 H, Carbon Dioxide 21 L, Anion Gap 8.8, BUN 14, Creatinine 0.80, Estimated Creat Clear 55, Estimated GFR 73, Est GFR ( Amer) 88, Glucose 111 H, Calcium 7.0 L, Troponin I 0.07 H 11/26/21 14:07: SARS-CoV-2 (PCR) Not detected, Influenza A Untype (PCR) Not detected, Influenza Type B (PCR) Not detected 11/26/21 14:07: NT-Pro-B Natriuret Pep 550 H 11/26/21 14:07: Sodium 137, Potassium 2.8 L*, Chloride 111 H, Carbon Dioxide 20 L, Anion Gap 8.8, BUN 13, Creatinine 0.90, Estimated Creat Clear 55, Estimated GFR 64, Est GFR ( Amer) 77, Glucose 109 H, Calcium 6.9 L, Troponin I 0.07 H 11/26/21 14:50: Activated Clotting Time > 400 H* 11/26/21 15:31: Activated Clotting Time 345 H* 11/26/21 15:52: Activated Clotting Time 316 H* 11/26/21 16:16: Activated Clotting Time 156 H* D 11/27/21 05:34: WBC 14.7 H, RBC 4.06 L, Hgb 11.2 L D, Hct 35.7 L, MCV 88.1, MCH 27.9, MCHC 31.7 L, RDW 16.9, Plt Count 185, MPV 8.9, Neut % (Auto) 79.8, Lymph % (Auto) 15.0, [place] % (Auto) 4.4, Eos % (Auto) 0.2, Baso % (Auto) 0.4, Neut # (Auto) 11.7 H, Lymph # (Auto) 2.2, [place] # (Auto) 0.7, Eos # (Auto) 0.0, Baso # (Auto) 0.1 11/27/21 05:34: Sodium 139, Potassium 4.2 D, Chloride 110 H, Carbon Dioxide 23, Anion Gap 10.2, BUN 14, Creatinine 0.70 D, Estimated Creat Clear 59, Estimated GFR 85, Est GFR ( Amer) 103 D, Glucose 123 H, Calcium 8.7 11/27/21 05:34: Triglycerides 152 H, Cholesterol 159, VLDL Cholesterol 30, HDL Cholesterol 32 L, Cholesterol/HDL Ratio 5.0 H I & O for Last 24 hours: Intake & Output 11/24/21 11/25/21 11/26/21 11/27/21 11:59 11:59 11:59 11:59 Weight 140 lb - Constitutional no acute distress - *Routine Respiratory Exam Present: CTA bilaterally - *Routine Cardiovascular Exam Present: RRR - *Routine Abdominal Exam Present: soft, normoactive bowel sounds. Absent: tenderness Assessment and Plan (1) STEMI (ST elevation myocardial infarction) Status: Acute Qualifiers: Involved coronary artery: right coronary artery Qualified Code(s): I21.11 - ST elevation (STEMI) myocardial infarction involving right coronary artery Category: Medical Code(s): I21.3 - ST elevation (STEMI) myocardial infarction of unspecified site (2) Stented coronary artery Status: Chronic Category: Surgical Code(s): Z95.5 - Presence of coronary angioplasty implant and graft (3) Ascending aortic aneurysm Status: Chronic Category: Medical Code(s): I71.2 - Thoracic aortic aneurysm, without rupture (4) CAD (coronary artery disease) Status: Chronic Qualifiers: Coronary Disease-Associated Artery/Lesion type: [place] artery [place] vs. transplanted heart: [place] heart Associated angina: with other forms of angina Qualified Code(s): I25.118 - Atherosclerotic heart disease of [place] coronary artery with other forms of angina pectoris Category: Medical Code(s): I25.10 - Atherosclerotic heart disease of [place] coronary artery without angina pectoris (5) Carotid artery stenosis Problem details: LEFT COMMON Status: Chronic Qualifiers: Laterality: bilateral Qualified Code(s): I65.23 - Occlusion and stenosis of bilateral carotid arteries Category
[2021-11-27 06:45] LABS: Albumin Level 3.4 g/dl (3.5-5.0); Alkaline Phosphatase 165 U/L (38-126); Bilirubin,Direct 0.2 mg/dl (0.0-0.4); Bilirubin,Total 0.2 mg/dl (0.2-1.3); Total Protein,Serum 6.4 g/dl (6.3-8.2)
[2021-11-27 06:50] LABS: Direct LDL Cholesterol 96.79 mg/dL (100-129)
--- NOTE | 2021-11-27 07:26 | P.CONPHA_ITS ---
[facility] Pharmacy VTE Monitoring - Patient Demographics Admission date: 11/26/21 Report Date: 11/27/21 Time: 07:26 Allergies/Adverse Reactions: Patient Allergies Penicillins [PENICILLINS] Allergy (Unknown, Verified 08/12/21 13:16) I-RASH Height: 1.57 m Weight: 63.503 kg Patient Problems: Current Active Problems STEMI (ST elevation myocardial infarction) (Acute) Stented coronary artery (Chronic) Hypokalemia (Acute) S/P ascending aortic aneurysm repair (Chronic) S/P CABG x 2 (Chronic) CAD (coronary artery disease) (Chronic) Tobacco use (Chronic) HTN (hypertension) (Chronic) HLD (hyperlipidemia) (Chronic) History of CVA (cerebrovascular accident) (Chronic) Carotid artery stenosis (Chronic) Ascending aortic aneurysm (Chronic) - VTE Risk Labs: VTE Related Lab Results Hgb 11.2 g/dL (12.2-16.2) L D 11/27/21 05:34 Hct 35.7 % (37.0-47.0) L 11/27/21 05:34 Plt Count 185 K/mm3 (142-424) 11/27/21 05:34 BUN 14 mg/dl (7-17) 11/27/21 05:34 Creatinine 0.70 mg/dl (0.52-1.04) D 11/27/21 05:34 Estimated Creat Clear 59 mL/min (50-200) 11/27/21 05:34 Was VTE Risk Assessment Performed: Yes VTE Score: 5 VTE Risk Level: Low Risk - Prophylaxis VTE Prophylaxis Ordered?: Yes Types of VTE Prophylaxis: TEDS Knee High, Pharmacological Location of Applied Device: Bilateral Lower Extremeties Pharmacologic Type: Enoxaparin
--- NOTE | 2021-11-27 08:13 | ECG_ITS ---
APPROVED REPORT Exam: Resting ECG HR:74 bpm ECG Measurements Heart Rate 74 AXES ND 174 P 64 QRSd 82 QRS 31 QT 436 T -27 QTc 483 Conclusion Normal sinus rhythm Low voltage QRS Possible Inferior infarct, age undetermined Abnormal ECG Electronically signed by : Alexandre Matson MD 11/29/2021 09:59:46
--- NOTE | 2021-11-27 10:31 | HMH.PNCARD ---
Subjective Date: 11/27/21 Time: 10:00 Principal diagnosis: stemi Interval history: This is a 61-year-old white female who presented directly to the cardiac catheterization laboratory having an inferior STEMI. The patient states yesterday she went shopping at [employer] and felt fine. She states when she got home she felt really nauseated and had vomited 3 times. Then she had sudden onset of substernal chest pressure and heaviness that radiated to her left arm. It was associated with shortness of breath, nausea and diaphoresis. She called EMS and was found to have an ST elevation myocardial infarction and brought directly to the cardiac catheterization laboratory. The patient had occluded her MORAN to the LAD and her saphenous vein graft to the right coronary artery was thrombosed. She underwent stenting and successful reconstruction of the chronically occluded [place] right coronary artery with 4 drug-eluting stents. The patient tolerated the procedure well. She will remain on aspirin and Brilinta for dual antiplatelet therapy. The patient did have some intermittent atrial fibrillation during the procedure. She was started on Lovenox subcu while she was going back and forth between sinus and atrial fibrillation. She has converted to sinus rhythm and her Lovenox can be stopped. This morning she denies any chest pain or pressure. She denies any shortness of breath or edema. She denies any fever, chills, nausea, vomiting, diarrhea, PND or orthopnea. [facility] shows: The left main artery Normal The left anterior descending artery Has an ostial 20% stenosis followed by a proximal concentric 30% stenosis. There is a mid vessel eccentric 60% stenosis along a tortuous bend. The circumflex artery Is a nondominant vessel and has a proximal 20% stenosis followed by proximal concentric 30% stenosis with 30% stenoses in the first obtuse marginal artery The right coronary artery Is a dominant vessel and has an ostial 40% stenosis followed by a proximal concentric 70% stenosis followed by occlusion immediately after an RV marginal branch. The NARAYANAN ventriculogram reveals Normal 60% with mild inferior wall hypokinesis The left ventricular end-diastolic pressure 15 mm Hg Left internal mammary artery is proximally occluded Saphenous vein graft to right coronary artery is proximally thrombosed IMPRESSION Acute thrombosis of the saphenous vein graft to the dominant right coronary artery Successful reconstruction of a chronically occluded [place] dominant right coronary artery with placement of 4 drug-eluting stents from the ostial through proximal mid and distal segments in a contiguous manner restoring CEE 0 flow to CEE III flow Normal ejection fraction with mild regional wall motion abnormality Borderline LVEDP Occluded left internal mammary artery to an LAD which is diseased mildly in the proximal segment and has a focal moderate stenosis in the midportion along a 1.5 mm in diameter LAD segment Third-degree heart block which is now resolved into sinus rhythm with intermittent paroxysmal atrial fibrillation PLAN 1. Brilinta 90 twice daily plus aspirin 81 mg daily 2. Lovenox therapeutic 1 mg/kg subcu twice daily as long as patient remains in atrial fibrillation 3. Supportive care for the next 48 hours 4. LDL less than 55 to be achieved with high intensity statin 5. Once hemodynamically stable patient should be started on low-dose carvedilol plus MIGUEL inhibitors unless otherwise contraindicated and uptitrated as tolerated 6. Cardiac rehabilitation 7. Avoidance of tobacco products 8. At this point I recommend medical management for the LAD lesion. The MORAN graft is down and patient has mild [place] disease in the left system. The mid LAD stenosis is focal and along a tortuous bend and is not ideally favorable to percutaneous revascularization. Medical management is much more warranted for this lesion 9. Patient presented in sinus rhythm
--- NOTE | 2021-11-27 16:16 | HMH.PHAINT ---
MEDICATION RECONCILIATION COMPLETED ON PATIENT USING EXTERNAL FILL HISTORY FROM PHARMACY. -PARVIZ WALLIS, KOREYD
[2021-11-28] VITALS: BP 123/70; PULSE 80; PULSE 83; O2SAT 96
[2021-11-28 02:00] VITALS: BP 121/73; PULSE 85; O2SAT 95
[2021-11-28 04:00] VITALS: BP 104/64; PULSE 80; PULSE 90; RESP 16; TEMP 37.4; O2SAT 98
[2021-11-28 05:00] VITALS: BMI 24.5
[2021-11-28 06:00] VITALS: BP 147/75; PULSE 74; O2SAT 96
--- NOTE | 2021-11-28 07:04 | HMH.ACPN2 ---
Internal Medicine - PN: Subj *Date: 11/28/21 *Time: 07:04 Interval history: Patient has no complaints. She remains in sinus rhythm. She denies chest pain or dyspnea. She has had intermittent nausea Exam Vital signs and Labs for Last 24 Hours: Temp Pulse Resp BP Pulse Ox 99.4 F 74 16 147/75 H 96 11/28/21 04:00 11/28/21 06:00 11/28/21 04:00 11/28/21 06:00 11/28/21 06:00 I & O for Last 24 hours: Intake & Output 11/25/21 11/26/21 11/27/21 11/28/21 11:59 11:59 11:59 11:59 Intake Total 120 / 120 240 / 240 Balance 120 / 120 240 / 240 Weight 140 lb 133 lb 9.6 oz - Constitutional no acute distress - *Routine Respiratory Exam Present: CTA bilaterally - *Routine Cardiovascular Exam Present: RRR - *Routine Abdominal Exam Present: soft, normoactive bowel sounds. Absent: tenderness Assessment and Plan (1) STEMI (ST elevation myocardial infarction) Status: Acute Qualifiers: Involved coronary artery: right coronary artery Qualified Code(s): I21.11 - ST elevation (STEMI) myocardial infarction involving right coronary artery Category: Medical Code(s): I21.3 - ST elevation (STEMI) myocardial infarction of unspecified site (2) Stented coronary artery Status: Chronic Category: Surgical Code(s): Z95.5 - Presence of coronary angioplasty implant and graft (3) Ascending aortic aneurysm Status: Chronic Category: Medical Code(s): I71.2 - Thoracic aortic aneurysm, without rupture (4) CAD (coronary artery disease) Status: Chronic Qualifiers: Coronary Disease-Associated Artery/Lesion type: [place] artery [place] vs. transplanted heart: [place]q heart Associated angina: with other forms of angina Qualified Code(s): I25.118 - Atherosclerotic heart disease of [place] coronary artery with other forms of angina pectoris Category: Medical Code(s): I25.10 - Atherosclerotic heart disease of [place] coronary artery without angina pectoris (5) Carotid artery stenosis Problem details: LEFT COMMON Status: Chronic Qualifiers: Laterality: bilateral Qualified Code(s): I65.23 - Occlusion and stenosis of bilateral carotid arteries Category: Medical Code(s): I65.29 - Occlusion and stenosis of unspecified carotid artery (6) HLD (hyperlipidemia) Status: Chronic Qualifiers: Hyperlipidemia type: mixed hyperlipidemia Qualified Code(s): E78.2 - Mixed hyperlipidemia Category: Medical Code(s): E78.5 - Hyperlipidemia, unspecified (7) HTN (hypertension) Status: Chronic Qualifiers: Hypertension type: primary hypertension Qualified Code(s): I10 - Essential (primary) hypertension Category: Medical Code(s): I10 - Essential (primary) hypertension (8) History of CVA (cerebrovascular accident) Status: Chronic Category: Medical Code(s): Z86.73 - Personal history of transient ischemic attack (TIA), and cerebral infarction without residual deficits (9) S/P CABG x 2 Status: Chronic Category: Surgical Code(s): Z95.1 - Presence of aortocoronary bypass graft (10) S/P ascending aortic aneurysm repair Status: Chronic Category: Surgical Code(s): Z98.890 - Other specified postprocedural states; Z86.79 - Personal history of other diseases of the circulatory system (11) Tobacco use Status: Chronic Category: Social Hx Code(s): Z72.0 - Tobacco use (12) Hypokalemia Status: Resolved Category: Medical Code(s): E87.6 - Hypokalemia - Assessment and plan all Dx Assessment and Plan for all problems:: Patient will be discharged home this afternoon. Beta-pilo will be increased at discharge.
--- NOTE | 2021-11-28 07:06 | HMH.DCSUM ---
General - General Admission date:: 11/26/21 Discharge date: 11/28/21 HPI HPI: 61-year-old female with prior history of coronary artery disease status post CABG x2 and prior stroke developed right arm pain with chest pain and pressure at home. Patient waited approximately 15 minutes for symptoms to resolve before EMS was contacted. Patient had associated diaphoresis and nausea. Patient also had a syncopal event at home when trying to use the bathroom. Patient was brought from home directly to the [facility] where she underwent left heart catheterization for STEMI. Patient underwent stenting of the right dominant coronary artery. During left heart catheterization she was noted to have complete heart block upon presentation which required transvenous pacing. Patient later converted to atrial fibrillation and was cardioverted to sinus rhythm. Patient reverted back to A. fib. Since arrival to the [facility] patient is back in sinus rhythm. Patient is now pain-free. Hospital Course Hospital Course: Patient was admitted for 48 hours of monitoring after acute ST elevation SC at home. Patient had been taken to the [facility] immediately upon presentation to the hospital with findings as follows: ANGIOGRAPHIC RESULTS The left main artery Normal The left anterior descending artery Has an ostial 20% stenosis followed by a proximal concentric 30% stenosis. There is a mid vessel eccentric 60% stenosis along a tortuous bend. The circumflex artery Is a nondominant vessel and has a proximal 20% stenosis followed by proximal concentric 30% stenosis with 30% stenoses in the first obtuse marginal artery The right coronary artery Is a dominant vessel and has an ostial 40% stenosis followed by a proximal concentric 70% stenosis followed by occlusion immediately after an RV marginal branch. The NARAYANAN ventriculogram reveals Normal 60% with mild inferior wall hypokinesis The left ventricular end-diastolic pressure 15 mm Hg Left internal mammary artery is proximally occluded Saphenous vein graft to right coronary artery is proximally thrombosed IMPRESSION Acute thrombosis of the saphenous vein graft to the dominant right coronary artery Successful reconstruction of a chronically occluded [place] dominant right coronary artery with placement of 4 drug-eluting stents from the ostial through proximal mid and distal segments in a contiguous manner restoring CEE 0 flow to CEE III flow Normal ejection fraction with mild regional wall motion abnormality Borderline LVEDP Occluded left internal mammary artery to an LAD which is diseased mildly in the proximal segment and has a focal moderate stenosis in the midportion along a 1.5 mm in diameter LAD segment Third-degree heart block which is now resolved into sinus rhythm with intermittent paroxysmal atrial fibrillation PLAN 1. Brilinta 90 twice daily plus aspirin 81 mg daily 2. Lovenox therapeutic 1 mg/kg subcu twice daily as long as patient remains in atrial fibrillation 3. Supportive care for the next 48 hours 4. LDL less than 55 to be achieved with high intensity statin 5. Once hemodynamically stable patient should be started on low-dose carvedilol plus MIGUEL inhibitors unless otherwise contraindicated and uptitrated as tolerated 6. Cardiac rehabilitation 7. Avoidance of tobacco products 8. At this point I recommend medical management for the LAD lesion. The MORAN graft is down and patient has mild curyung disease in the left system. The mid LAD stenosis is focal and along a tortuous bend and is not ideally favorable to percutaneous revascularization. Medical management is much more warranted for this lesion 9. Patient presented in sinus rhythm despite being in third-degree AV block. I believe the paroxysmal atrial fibrillation likely stems from the acute myocardial infarction. If the patient converts to sinus rhythm in the next day or so she will not require Xarelto. If she remai
[2021-11-28 08:00] VITALS: PULSE 90; TEMP 37.1
--- NOTE | 2021-11-28 08:33 | HMH.PNCARD ---
Subjective Date: 11/28/21 Time: 08:15 Principal diagnosis: stemi Interval history: This is a 61-year-old white female who presented to the hospital with an inferior STEMI. The patient underwent left cardiac catheterization and had 4 drug-eluting stent placed to her [place] coronary artery. She will remain on Brilinta and aspirin for dual antiplatelet therapy. The patient did have some intermittent atrial fibrillation following her left cardiac catheterization but has since converted to sinus rhythm. She denies any chest pain, pressure, shortness of breath or edema. She denies any fever, chills, nausea, vomiting, diarrhea, PND or orthopnea. Patient states that she is ready to be discharged home today. Exam Vital signs and Labs for Last 24 Hours: Temp Pulse Resp BP Pulse Ox 98.8 F 74 16 147/75 H 96 11/28/21 08:00 11/28/21 06:00 11/28/21 04:00 11/28/21 06:00 11/28/21 06:00 I & O for Last 24 hours: Intake & Output 11/25/21 11/26/21 11/27/21 11/28/21 23:59 23:59 23:59 23:59 Intake Total 360 / 360 240 / 240 Balance 360 / 360 240 / 240 Weight 130 lb 6 oz 140 lb 133 lb 9.6 oz Narrative: Telemetry strip shows sinus rhythm. - Constitutional no acute distress, average body habitus - *Routine HEENT Exam Head: Present: normocephalic, atraumatic Eye: Present: EOMI, PERRL ENT: Present: mucous membranes moist - *Routine Neck Exam Present: supple, full ROM, carotid bruit, normal carotid upstroke. Absent: JVD, lymphadenopathy - *Routine Respiratory Exam Present: CTA bilaterally - *Routine Cardiovascular Exam Present: RRR, Normal S1, Normal S2. Absent: murmur - *Routine Abdominal Exam Present: soft, normoactive bowel sounds. Absent: tenderness, distended - *Routine Extremities Exam Present: full ROM, pulses intact, normal capillary refill. Absent: cyanosis, clubbing, edema - *Routine Skin Exam Present: intact, warm. Absent: erythema, rash - *Routine Neurological Exam Present: alert, oriented X3, CN II-XII intact. Absent: sensory deficit, motor deficit Progress Note: A&P (1) STEMI (ST elevation myocardial infarction) Status: Acute (2) Stented coronary artery Status: Chronic (3) Ascending aortic aneurysm Status: Chronic (4) CAD (coronary artery disease) Status: Chronic (5) Carotid artery stenosis Problem details: LEFT COMMON Status: Chronic (6) HLD (hyperlipidemia) Status: Chronic (7) HTN (hypertension) Status: Chronic (8) History of CVA (cerebrovascular accident) Status: Chronic (9) S/P CABG x 2 Status: Chronic (10) S/P ascending aortic aneurysm repair Status: Chronic (11) Tobacco use Status: Chronic (12) Hypokalemia Status: Resolved Assessment and Plan for All Diagnoses:: Plan: 1. The patient was admitted to the hospital following a STEMI. She was taken to the [facility] and had an occluded MORAN and her saphenous vein graft to the right coronary artery was thrombosed. She underwent stenting of her [place] right coronary artery with 4 drug-eluting stents. She tolerated the procedure well. And will remain on Brilinta and aspirin for dual antiplatelet therapy. 2. Her coronary artery disease is likely stable. She denies any chest pain or pressure. 3. Her blood pressure is acceptable. 4. Her LDL goal is less than 55. Her LDL of 96. On a high intensity statin. 5. The patient did have third-degree heart block on presentation to the hospital and during her STEMI she had some intermittent atrial fibrillation and immediately after. She has converted to sinus rhythm. She has had no events on telemetry since being admitted. We will keep her on telemetry for 48 hours post STEMI which ends around 2 PM today. 6. Tobacco cessation is highly advised and counseled. I had a long discussion about tobacco cessation with this patient. She had coronary artery bypass grafting less than 6 months ago and her grafts are occluded and thrombosed
--- NOTE | 2021-11-28 10:32 | HMH.PHACLD ---
Cici Saud Bairon has received discharge medication counseling on the following medications: BRILINTA (NEW) ASPIRIN CARVEDILOL (NEW) LISINOPRIL ATORVASTATIN PATIENT IS TO STOP METOPROLOL IN FAVOR OF CARVEDILOL. NEW PRESCRIPTIONS WERE SENT TO [facility]. PATIENT VERBALIZED UNDERSTANDING AND HAD NO QUESTIONS AT THIS TIME. -PARVIZ WALLIS, KOREYD
[2021-11-28 12:00] VITALS: BP 103/65; PULSE 90; PULSE 98; RESP 16; TEMP 36.7
== END 2021-11-28 14:21 | disposition home or self-care (01) | DRG 246 ==
LOC: 2ND 14:48
PROVIDERS: Internal Medicine; Nurse Practitioner Family; Admitting Provider Family Medicine; PCP Family Medicine; Visit Provider Family Medicine
PROC: 027037Z Dilation of Coronary Artery, One Artery with Four or More Drug-eluting Intraluminal Devices, Percutaneous Approach (ICD-10-PCS; principal; 2021-11-26 13:30)
DX: I44.2 Atrioventricular block, complete; I65.23 Occlusion and stenosis of bilateral carotid arteries; I21.11 ST elevation (STEMI) myocardial infarction involving right coronary artery; I25.118 Atherosclerotic heart disease of native coronary artery with other forms of angina pectoris; F17.210 Nicotine dependence, cigarettes, uncomplicated; R57.0 Cardiogenic shock; Z95.1 Presence of aortocoronary bypass graft; I10 Essential (primary) hypertension; I71.2 Thoracic aortic aneurysm, without rupture; E87.6 Hypokalemia; Z86.73 Personal history of transient ischemic attack (TIA), and cerebral infarction without residual deficits; E78.5 Hyperlipidemia, unspecified; Z95.5 Presence of coronary angioplasty implant and graft; I48.0 Paroxysmal atrial fibrillation
CPT/HCPCS: 36415; 80048; 80061; 80076; 83880; 84484; 85025; 85347; 92929; 92941; 92960; 93005; 93306; 93458; C9601; C9606; C9803; J1644; J2405; J2720; Q9967; U0003; U0005

== ENCOUNTER → 2021-12-09 08:02 | Outpatient (CLI) | payer MEDICARE, SELFPAY ==
[2021-12-09 08:16] LABS: Hematocrit 37.7 % (37.0-47.0); Hemoglobin 12.1 g/dL (12.2-16.2)
[2021-12-09 08:37] LABS: Blood Urea Nitrogen 14 mg/dl (7-17); Estimated Glomerular Filt Rate 73 ml/min (>60); GFR (African American) 88 ML/MIN (>60)
== END ==
PROVIDERS: Visit Provider Internal Medicine
DX: I21.3 ST elevation (STEMI) myocardial infarction of unspecified site (principal)
CPT/HCPCS: 36415; 82565; 84520; 85014; 85018

== ENCOUNTER 2021-12-10 08:54 | Outpatient (RCR) | payer MEDICARE, SELFPAY | END 2021-12-10 08:59 | disposition home or self-care (01) | LOC: PT 08:54 | PROVIDERS: Visit Provider Internal Medicine | DX: I25.10 Atherosclerotic heart disease of native coronary artery without angina pectoris (principal); Z95.5 Presence of coronary angioplasty implant and graft | CPT/HCPCS: 93798 ==

== ENCOUNTER → 2022-01-01 07:58 | Outpatient (CLI) | payer MEDICARE, SELFPAY ==
--- NOTE | 2022-01-01 08:15 | CT_ITS ---
FINAL REPORT CLINICAL HISTORY: memory loss, hx cva, MRI contraindicated vision loss in right eye FINDINGS: Axial images of the head were obtained without contrast. Coronal reformatted images were also obtained.This study was performed with techniques to keep radiation doses as low as reasonably achievable (ALARA). Individualized dose reduction techniques using automated exposure control or adjustment of mA and/or kV according to the patient's size were employed. There is no evidence of intracranial hemorrhage or mass. There is a chronic left basal ganglia infarct. The ventricular size is within normal limits. There is no evidence of shift of the midline structures. No abnormal extra axial fluid collection is identified. No skull abnormality is seen on the bone window images. There is fluid in the right maxillary sinus. IMPRESSION: No acute intracranial abnormality. Reviewed, Interpreted and Dictated by Jerry Mills III, MD Transcribed by Edwin Watson Authenticated by Jerry Mills III, MD on 01/01/2022 09:55:11 AM [facility]
[2022-01-01 08:23] LABS: Chloride 109 mmol/L (98-107)
[2022-01-01 08:24] LABS: Potassium 4.1 mmoL/L (3.5-5.1); Sodium 138 mmol/L (136-145)
[2022-01-01 08:26] LABS: Alanine Aminotransferase 20 U/L (12-78); Albumin Level 3.9 g/dl (3.5-5.0); Albumin/Globulin Ratio 1.1 (1.1-1.8); Alkaline Phosphatase 164 U/L (38-126); Anion Gap 6.1 mEq/L (5-15); Aspartate Amino Transferase 26 U/L (14-36); Basophils # 0.1 K/mm3 (0-0.2); Basophils % 0.9 % (0.1-2.0); Bilirubin,Total 0.6 mg/dl (0.2-1.3); Blood Urea Nitrogen 10 mg/dl (7-17); Carbon Dioxide 27 mmol/L (22.0-30.0); Eosinophils # 0.2 K/mm3 (0.0-0.4); Estimated Glomerular Filt Rate 85 ml/min (>60); GFR (African American) 103 ML/MIN (>60); Globulin 3.4 g/dL (1.3-3.2); Hematocrit 37.5 % (37.0-47.0); Lymphocytes # 1.6 K/mm3 (0.7-4.5); Lymphocytes % 22.9 % (10-50); Mean Corpuscular HGB Conc 32.1 g/dL (31.8-35.4); Mean Corpuscular Hemoglobin 28.2 pg (27.0-31.2); Mean Corpuscular Volume 87.9 fl (81-99); Mean Platelet Volume 8.8 fl (7.4-10.4); Monocytes # 0.4 K/mm3 (0.1-1.0); Monocytes % 5.7 % (1.7-9.3); Neutrophils # 4.9 K/mm3 (1.8-7.8); Neutrophils % 68.5 % (37.0-80.0); Platelet Count 262 K/mm3 (142-424); Red Blood Count 4.27 M/mm3 (4.20-5.40); Red Cell Distribution Width 16.3 % (11.5-17.5); Total Protein,Serum 7.3 g/dl (6.3-8.2); White Blood Count 7.2 K/mm3 (4.8-10.8)
[2022-01-01 08:27] LABS: Calcium 9.1 mg/dl (8.4-10.2); Chol/HDL Ratio 4.2 (1-3.5); Cholesterol 143 mg/dl (140-200); Glucose 107 mg/dl (74-100); HDL Cholesterol 34 mg/dl (40-60); Triglycerides 146 mg/dl (30-150); VLDL Cholesterol 29 mg/dL (0-40)
[2022-01-01 08:38] LABS: Direct LDL Cholesterol 81.54 mg/dL (100-129)
[2022-01-01 09:00] LABS: Thyroid Stimulating Hormone 1.49 uIU/mL (0.465-4.68)
[2022-01-01 09:02] LABS: Erythrocyte Sedimentation Rate 87 mm/hr (0-30)
[2022-01-01 11:26] LABS: Folate 5.95 ng/mL; Vitamin B12 880 pg/mL (239-931)
== END ==
PROVIDERS: PCP Family Medicine; Visit Provider Nurse Practitioner Family
DX: E78.2 Mixed hyperlipidemia (principal); G47.00 Insomnia, unspecified; H53.9 Unspecified visual disturbance; I10 Essential (primary) hypertension; I65.23 Occlusion and stenosis of bilateral carotid arteries; R06.83 Snoring; R40.0 Somnolence; R41.3 Other amnesia; R47.01 Aphasia; Z86.73 Personal history of transient ischemic attack (TIA), and cerebral infarction without residual deficits; Z86.79 Personal history of other diseases of the circulatory system; Z95.1 Presence of aortocoronary bypass graft; Z95.5 Presence of coronary angioplasty implant and graft; Z98.890 Other specified postprocedural states
CPT/HCPCS: 36415; 70450; 80053; 80061; 82607; 82746; 84443; 85025; 85651

== ENCOUNTER → 2022-01-15 12:17 | Outpatient (CLI) | payer MEDICARE, SELFPAY ==
--- NOTE | 2022-01-15 12:33 | XR_ITS ---
FINAL REPORT CLINICAL HISTORY: cough, elevated sed rate, tobacco abuse FINDINGS: Two views of the chest were obtained. There has been median sternotomy. The heart size and pulmonary vascularity are within normal limits. The mediastinum is normal. No acute pulmonary abnormality is identified. There is no pneumothorax. The bony thorax is intact. IMPRESSION: No active cardiopulmonary disease. Reviewed, Interpreted and Dictated by Jerry Mills III, MD Transcribed by Edwin Watson Authenticated by Jerry Mills III, MD on 01/15/2022 01:13:[address] [facility]
[2022-01-15 13:29] LABS: Erythrocyte Sedimentation Rate 56 mm/hr (0-30)
[2022-01-15 13:47] LABS: C-Reactive Protein 4.5 mg/L (0-4)
[2022-01-16 12:35] LABS: Rapid Plasma Reagin Ab Titer Non Reactive (NonRea<1:1)
[2022-03-13 13:46] LABS: Antinuclear Antibodies (ANA) NEGATIVE
== END ==
PROVIDERS: PCP Family Medicine; Visit Provider Nurse Practitioner Family
DX: R05.9 Cough, unspecified (principal); R41.3 Other amnesia; R70.0 Elevated erythrocyte sedimentation rate; Z72.0 Tobacco use
CPT/HCPCS: 36415; 71046; 85651; 86038; 86140; 86225; 86235; 86592

== ENCOUNTER → 2022-02-11 19:52 | Outpatient (CLI) | payer MEDICARE, SELFPAY | PROVIDERS: PCP Family Medicine; Visit Provider Nurse Practitioner Family | DX: G47.33 Obstructive sleep apnea (adult) (pediatric) (principal); R06.83 Snoring; R40.0 Somnolence | CPT/HCPCS: 95810 ==

== ENCOUNTER 2022-04-02 08:00 | Outpatient (RCR) | payer MEDICARE, SELFPAY ==
--- NOTE | 2022-03-25 12:41 | HMH.SLAPHASI ---
Speech & Language Evaluation Speech/Language Aphasia Evaluation Start: 03/25/22 12:24 Freq: once Status: Complete Protocol: Document 03/25/22 12:24 KADIE (Rec: 03/25/22 12:41 KADIE [id number]) Aphasia Assessment/Goals/Plan Assessment Date of Evaluation: 03/25/22 Evaluation Type Initial Certification Assessment/Problems Aphasia Eval Does Patient Qualify for Service Yes Qualify/Failure Comment Ms. Waddell qualifies for services based on the eval that was given on today's date . Plan Pt will be seen # times/week 1 for # weeks 8 Anticipate reaching STG in # weeks 4 Anticipate reaching LTG in # weeks 8 Pt/Guardian verbally ack understanding Yes of dx/prognosis/goals G -code Required No STG-Attending/Orientation/Memory Delayed Recall 90 Attention/Concentration 90 STG-Divergent Thinking Deductive Reasoning 90 Inductive Reasoning 90 [facility] Manager Goals Increase cognitive skills to communicate Yes w/family & friends Speech & Language HPI History Present Illness Description of Patient Problem Aphasia Eval Pt/Caregiver Concerns No concerns Is this evaluation r/t stroke? Yes Language Primary Language Bahraini Ruby Lang/Spoken in Home [place]i Aphasia Evaluations Communication Speech Intelligibility WNL AC Comment WNL RC Comment WNL MATEUS Comment WNL WL Comment WNL Attending/Orientation/Memory Yes: Delayed Recall W/ Interference Attention/Concentration AOM Comment Delayed recall with interference and attention impairment. Ms. Waddell was able to recall 1/3 words with a delayed recall, accuracy increased given cues. Ms. Waddell was unable to immediately recall 7 number when requested. CLS Comment WNL CT Comment WNL Divergent Thinking Yes: Verbal Absurdities DT Comment Divergent categorization impairment. Ms. Waddell was only able to recall 4 sharp items within 30 seconds with 6-8 items being WFL. She also displayed difficulties with v
== END 2022-04-02 08:05 | disposition home or self-care (01) ==
LOC: ST 08:00
PROVIDERS: PCP Family Medicine; Visit Provider Nurse Practitioner Family
DX: R47.01 Aphasia (principal); R41.3 Other amnesia; R41.89 Other symptoms and signs involving cognitive functions and awareness; Z86.73 Personal history of transient ischemic attack (TIA), and cerebral infarction without residual deficits
CPT/HCPCS: 92523; 97129; 97130

== ENCOUNTER → 2022-06-26 12:39 | Outpatient (CLI) | payer MEDICARE, SELFPAY ==
--- NOTE | 2022-06-26 13:01 | CT_ITS ---
FINAL REPORT TECHNIQUE: Axial imaging of the chest is obtained after the administration of contrast. 3-D MIP reformatted images were also obtained and reviewed per PE protocol. CLINICAL HISTORY: THORACIC AORTIC ANEURYSM COMPARISON: April 16, 2021 FINDINGS: There has been interval sternotomy with thoracic aortic aneurysm repair. The ascending aorta now measures 2.8 cm. The pulmonary arteries are well filled. There is no evidence of pulmonary embolus. There is no aortic dissection or intimal flap. There is no mediastinal, hilar, or axillary lymphadenopathy. Mild emphysematous changes are present. The lungs are otherwise clear. There is no pleural or pericardial effusion. Limited evaluation of the upper abdomen is without acute abnormality. There is no acute osseous abnormality. IMPRESSION: Interval thoracic aortic aneurysm repair. Otherwise no acute abnormality. Reviewed, Interpreted and Dictated by Mayra Mariee MD Transcribed by Edwin Watson Authenticated and [facility]
[2022-06-26 13:12] LABS: Blood Urea Nitrogen 16 mg/dl (7-17); Estimated Glomerular Filt Rate 73 ml/min (>60); GFR (African American) 88 ML/MIN (>60)
== END ==
PROVIDERS: PCP Family Medicine; Visit Provider Thoracic Surgery (Cardiothoracic Vascular Surgery)
DX: I71.2 Thoracic aortic aneurysm, without rupture (principal)
CPT/HCPCS: 36415; 71275; 82565; 84520; Q9967

== ENCOUNTER → 2022-11-13 10:37 | Outpatient (CLI) | payer MEDICARE, SELFPAY ==
[2022-11-13 11:45] LABS: Alanine Aminotransferase 19 U/L (12-78); Albumin Level 3.6 g/dl (3.5-5.0); Alkaline Phosphatase 158 U/L (38-126); Aspartate Amino Transferase 23 U/L (14-36); Bilirubin,Indirect 0.2 mg/dL (0.0-0.9); Bilirubin,Total 0.2 mg/dl (0.2-1.3); Bilirubin,Unconjugated 0.2 mg/dL (0.0-1.1); Chol/HDL Ratio 4.7 (1-3.5); Cholesterol 141 mg/dl (140-200); HDL Cholesterol 30 mg/dl (40-60); Total Protein,Serum 6.5 g/dl (6.3-8.2); Triglycerides 203 mg/dl (30-150); VLDL Cholesterol 41 mg/dL (0-40)
[2022-11-13 11:56] LABS: Direct LDL Cholesterol 79.11 mg/dL (100-129)
== END ==
PROVIDERS: PCP Family Medicine; Visit Provider Physician Assistant
DX: E78.2 Mixed hyperlipidemia (principal); I10 Essential (primary) hypertension; I25.10 Atherosclerotic heart disease of native coronary artery without angina pectoris; Z72.0 Tobacco use; Z86.79 Personal history of other diseases of the circulatory system; Z95.1 Presence of aortocoronary bypass graft; Z98.890 Other specified postprocedural states
CPT/HCPCS: 36415; 80061; 80076

== ENCOUNTER → 2023-03-11 12:28 | Outpatient (CLI) | payer MEDICARE, SELFPAY | PROVIDERS: PCP Family Medicine; Visit Provider Nurse Practitioner Family | DX: G47.33 Obstructive sleep apnea (adult) (pediatric) (principal); I10 Essential (primary) hypertension; I21.3 ST elevation (STEMI) myocardial infarction of unspecified site; Z72.0 Tobacco use; Z86.73 Personal history of transient ischemic attack (TIA), and cerebral infarction without residual deficits | CPT/HCPCS: 94762 ==

== ENCOUNTER → 2023-04-02 12:00 | Outpatient (CLI) | payer MEDICARE, SELFPAY | PROVIDERS: PCP Family Medicine; Visit Provider Nurse Practitioner Family | DX: G47.31 Primary central sleep apnea (principal); Z72.0 Tobacco use | CPT/HCPCS: 94762 ==

== ENCOUNTER → 2023-05-06 09:32 | Outpatient (CLI) | payer MEDICARE, SELFPAY ==
[2023-05-06 10:24] LABS: Basophils % 0.4 % (0.1-2.0); Eosinophils # 0.3 K/mm3 (0.0-0.4); Eosinophils % 3.4 % (0.1-12.0); Hematocrit 39.5 % (37.0-47.0); Hemoglobin 12.9 g/dL (12.2-16.2); Lymphocytes # 2.6 K/mm3 (0.7-4.5); Lymphocytes % 34.4 % (10-50); Mean Corpuscular HGB Conc 32.7 g/dL (31.8-35.4); Mean Corpuscular Hemoglobin 28.8 pg (27.0-31.2); Mean Corpuscular Volume 88.1 fl (81-99); Mean Platelet Volume 8.7 fl (7.4-10.4); Monocytes # 0.4 K/mm3 (0.1-1.0); Monocytes % 5.9 % (1.7-9.3); Neutrophils # 4.2 K/mm3 (1.8-7.8); Neutrophils % 55.9 % (37.0-80.0); Platelet Count 158 K/mm3 (142-424); Red Blood Count 4.48 M/mm3 (4.20-5.40); Red Cell Distribution Width 15.3 % (11.5-17.5); White Blood Count 7.6 K/mm3 (4.8-10.8)
[2023-05-06 10:55] LABS: Chloride 107 mmol/L (98-107); Potassium 4.5 mmoL/L (3.5-5.1); Sodium 141 mmol/L (136-145)
[2023-05-06 10:57] LABS: Alanine Aminotransferase 33 U/L (12-78); Alkaline Phosphatase 144 U/L (38-126); Anion Gap 11.5 mEq/L (5-15); Aspartate Amino Transferase 33 U/L (14-36); Bilirubin,Indirect 0.4 mg/dL (0.0-0.9); Bilirubin,Total 0.4 mg/dl (0.2-1.3); Bilirubin,Unconjugated 0.4 mg/dL (0.0-1.1); Blood Urea Nitrogen 12 mg/dl (7-17); Carbon Dioxide 27 mmol/L (22.0-30.0); Estimated Glomerular Filt Rate 73 ml/min (>60); GFR (African American) 88 ML/MIN (>60)
[2023-05-06 10:58] LABS: Albumin Level 3.9 g/dl (3.5-5.0); Calcium 9.1 mg/dl (8.4-10.2); Cholesterol 188 mg/dl (140-200); Glucose 86 mg/dl (74-100); Total Protein,Serum 6.8 g/dl (6.3-8.2); Triglycerides 168 mg/dl (30-150); VLDL Cholesterol 34 mg/dL (0-40)
[2023-05-06 11:09] LABS: Direct LDL Cholesterol 98.59 mg/dL (100-129)
[2023-05-06 11:15] LABS: Free T4 (Free Thyroxine) 0.93 ng/dl (0.78-2.19)
[2023-05-06 12:55] LABS: Chol/HDL Ratio 4.5 (1-3.5); HDL Cholesterol 42 mg/dl (40-60)
== END ==
PROVIDERS: Nurse Practitioner; PCP Family Medicine
DX: E78.2 Mixed hyperlipidemia (principal); I10 Essential (primary) hypertension; Z79.899 Other long term (current) drug therapy
CPT/HCPCS: 36415; 80048; 80061; 80076; 83735; 84439; 84443; 85025

== ENCOUNTER → 2023-07-02 07:56 | Outpatient (CLI) | payer MEDICARE, SELFPAY ==
--- NOTE | 2023-07-02 08:03 | CT_ITS ---
FINAL REPORT CLINICAL HISTORY: Ascending aortic aneurysm COMPARISON: 06/26/2022 FINDINGS: Thin section axial CT images of the chest were obtained with contrast. 3D reformatted images were also obtained. This study was performed with techniques to keep radiation doses as low as reasonably achievable (ALARA). Individualized dose reduction techniques using automated exposure control or adjustment of mA and/or kV according to the patient's size were employed. Prior median sternotomy. There is no evidence of pulmonary embolism. There is no evidence of thoracic aortic aneurysm or dissection. The ascending aorta measures 2.8 cm and was 2.8 cm. There is no evidence of mediastinal or hilar mass or adenopathy. There is no evidence of pulmonary mass or nodule. No localized inflammatory process is seen within the lungs. There is mild scarring and mild emphysema. Limited images of the upper abdomen demonstrate a 9 mm mass in the upper pole of the right kidney. This was present on multiple prior CTs. It does not have the appearance of a simple cyst. Favor complex cyst or neoplasm. IMPRESSION: No evidence of pulmonary embolism. No mass or localized inflammatory process. Reviewed, Interpreted and Dictated by Jerry Mills III, MD Transcribed by Sera Ny Authenticated and [facility]
[2023-07-02 08:42] LABS: Blood Urea Nitrogen 14 mg/dl (7-17); Estimated Glomerular Filt Rate 63 ml/min (>60); GFR (African American) 77 ML/MIN (>60)
== END ==
PROVIDERS: PCP Family Medicine; Visit Provider Thoracic Surgery (Cardiothoracic Vascular Surgery)
DX: I71.21 Aneurysm of the ascending aorta, without rupture (principal)
CPT/HCPCS: 71275; 82565; 84520; Q9967

== ENCOUNTER 2024-05-10 09:25 | Outpatient (CLI) | payer MEDICARE, SELFPAY ==
[2024-05-10 09:56] LABS: Basophils # 0.1 K/mm3 (0-0.2); Basophils % 0.7 % (0.1-2.0); Eosinophils # 0.3 K/mm3 (0.0-0.4); Hematocrit 41.7 % (37.0-47.0); Hemoglobin 13.5 g/dL (12.2-16.2); Lymphocytes # 2.6 K/mm3 (0.7-4.5); Lymphocytes % 30.6 % (10-50); Mean Corpuscular HGB Conc 32.4 g/dL (31.8-35.4); Mean Corpuscular Hemoglobin 29.5 pg (27.0-31.2); Mean Corpuscular Volume 91.1 fl (81-99); Mean Platelet Volume 8.9 fl (7.4-10.4); Monocytes # 0.4 K/mm3 (0.1-1.0); Neutrophils % 59.8 % (37.0-80.0); Platelet Count 162 K/mm3 (142-424); Red Blood Count 4.58 M/mm3 (4.20-5.40); Red Cell Distribution Width 15.7 % (11.5-17.5); White Blood Count 8.4 K/mm3 (4.8-10.8)
[2024-05-10 10:55] LABS: Alanine Aminotransferase 27 U/L (12-78); Albumin Level 4.1 g/dl (3.5-5.0); Alkaline Phosphatase 139 U/L (38-126); Anion Gap 11.9 mEq/L (5-15); Aspartate Amino Transferase 31 U/L (14-36); Bilirubin,Indirect 0.3 mg/dL (0.0-0.9); Bilirubin,Total 0.3 mg/dl (0.2-1.3); Bilirubin,Unconjugated 0.4 mg/dL (0.0-1.1); Blood Urea Nitrogen 15 mg/dl (7-17); Calcium 9.3 mg/dl (8.4-10.2); Carbon Dioxide 26 mmol/L (22.0-30.0); Chloride 108 mmol/L (98-107); Cholesterol 191 mg/dl (140-200); Estimated Glomerular Filt Rate 72 ml/min (>60); GFR (African American) 88 ML/MIN (>60); Glucose 105 mg/dl (74-100); HDL Cholesterol 38 mg/dl (40-60); Magnesium 1.8 mg/dl (1.6-2.3); Potassium 3.9 mmoL/L (3.5-5.1); Sodium 142 mmol/L (136-145); Triglycerides 203 mg/dl (30-150); VLDL Cholesterol 41 mg/dL (0-40)
[2024-05-10 11:10] LABS: Free T4 (Free Thyroxine) 1.05 ng/dl (0.78-2.19)
[2024-05-10 11:25] LABS: Thyroid Stimulating Hormone 2.65 uIU/mL (0.465-4.68)
== END 2024-05-10 23:59 | disposition home or self-care (01) ==
LOC: LAB 09:27
PROVIDERS: PCP Family Medicine; Visit Provider Nurse Practitioner
DX: I11.9 Hypertensive heart disease without heart failure (principal); I25.10 Atherosclerotic heart disease of native coronary artery without angina pectoris; I65.23 Occlusion and stenosis of bilateral carotid arteries; I48.0 Paroxysmal atrial fibrillation; E78.2 Mixed hyperlipidemia; Z86.73 Personal history of transient ischemic attack (TIA), and cerebral infarction without residual deficits; Z95.1 Presence of aortocoronary bypass graft; Z95.5 Presence of coronary angioplasty implant and graft; F17.210 Nicotine dependence, cigarettes, uncomplicated
CPT/HCPCS: 36415; 80048; 80061; 80076; 83735; 84439; 84443; 85025; 93270

== ENCOUNTER 2024-05-16 14:06 | Outpatient (CLI) | payer MEDICARE, SELFPAY ==
--- NOTE | 2024-05-16 14:10 | CA_ITS ---
APPROVED REPORT EXAM: Comprehensive 2D, Doppler, and color-flow Echocardiogram Waste Handling Technician: Skye Cee CRT Ht: 5 ft 2 in Wt: 145lbs BSA: 1.67 BP: 154/70 mmHg Indications: CVA/TIA, Atrial Fibrillation, CAD, Hyperlipidemia, Hypertension/HDD, CABG, AAA, Smoker 2D Dimensions LA Volume 23.30 mL LA Volume Index 13.95 mL/m2 (M/F) 16-34 M-Mode Dimensions RVDd 2.49 cm (0.9-2.6) LA Diam 2.93 cm (1.9-4.0) LVDd 4.76 cm (3.5-5.7) LVDs 3.24 cm (3.5-5.7) IVSd 1.25 cm (0.6-1.1) PWd 0.67 cm (0.6-1.1) EF (Teich) 60.00% FS 31.90% EDV (Teich) 105.40 mL TAPSE 2.01 (<1.7) ESV (Teich) 42.20 mL LV Diastology E Decel Time 170 (160-240 msec) E/A Ratio 1.1 MED A' 7.60 cm/s LAT A' 7.10 cm/s Aortic Valve AO Peak GR. 8.70 mmHg Mitral Valve MV E Max Jose Angel. 84.0 (40-130 cm/s) MV A Velocity 75.0 (40-130 cm/s) E/A Ratio 1.12 MV PHT 50.0 ms Pulmonary Valve PV Peak Velocity 134.0 (50-150 cm/s) Tricuspid Valve TR P. Velocity 138.00 cm/s RAP Estimate 10.00 mmHg RVSP 17.70 mmHg Left Ventricle The left ventricle is normal size. The left ventricular systolic function is normal. The left ventricular ejection fraction is within the normal range. There is normal left ventricular wall thickness. There is normal LV segmental wall motion. The left ventricular diastolic function is normal. LVEF is 60%. Right Ventricle The right ventricle is normal size. The right ventricular systolic function is normal. Atria The left atrium size is normal. The right atrium size is normal. There is no Doppler evidence of interatrial shunt. Aortic Valve The aortic valve opens well. There is no aortic valvular stenosis. No aortic regurgitation is present. Mitral Valve The mitral valve is normal in structure. No evidence of mitral valve stenosis. There is no mitral valve regurgitation noted. Tricuspid Valve The tricuspid valve leaflets are thin and pliable. Trace tricuspid regurgitation. There is insufficient TR jet to estimate RVSP. Pulmonic Valve The pulmonary valve is normal in structure. Trace pulmonic regurgitation. Great Vessels The aortic root is normal in size. The ascending aorta is normal in size. IVC is normal in size and collapses >50% with inspiration. Pericardium There is no pericardial effusion. Other Information Study Quality: Fair Conclusion Normal biventricular systolic function. No significant valvular stenosis or regurgitation. No evidence of masses or thrombi. Normal size of aortic root and ascending aorta Electronically signed by : Jennifer Ely MD 05/19/2024 10:32:11
--- NOTE | 2024-05-16 14:10 | CA_ITS ---
FINAL REPORT CLINICAL HISTORY: CAD, HX CVA,SMOKER,HTN,DIZZINESS FINDINGS: RIGHT CAROTID: CCA PSV - 79 cm/sec ICA PSV - 102 cm/sec ICA/CCA PSV ratio -1.4 . Comments: Mild plaque disease is noted. LEFTCAROTID: CCA PSV - 78. cm/sec ICA PSV - 105. cm/sec ICA/CCA PSV ratio - 1.4 . Comments: Mild plaque disease is noted. Antegrade flow is seen within the vertebral arteries. IMPRESSION: Carotid stenosis classified less than 50% Reviewed, Interpreted and Dictated by Chris Oliva MD Transcribed by Francisca Perera Authenticated and [facility]
== END 2024-05-16 23:59 | disposition home or self-care (01) ==
LOC: RT 14:08
PROVIDERS: PCP Family Medicine; Visit Provider Nurse Practitioner
DX: I65.23 Occlusion and stenosis of bilateral carotid arteries (principal); I11.9 Hypertensive heart disease without heart failure; I25.10 Atherosclerotic heart disease of native coronary artery without angina pectoris; E78.2 Mixed hyperlipidemia; Z95.5 Presence of coronary angioplasty implant and graft; Z95.1 Presence of aortocoronary bypass graft; F17.210 Nicotine dependence, cigarettes, uncomplicated; Z86.73 Personal history of transient ischemic attack (TIA), and cerebral infarction without residual deficits
CPT/HCPCS: 93306; 93880

== ENCOUNTER 2024-06-30 07:15 | Day surgery (SDC) | payer MEDICARE, SELFPAY ==
[2024-06-30 07:19] VITALS: BP 146/86; PULSE 62; PULSE 64; RESP 16; TEMP 36.6; O2SAT 100; BMI 25.7
[2024-06-30 08:00] VITALS: BP 126/71; PULSE 64; RESP 17; O2SAT 96
[2024-06-30 08:27] VITALS: BP 126/71; PULSE 69; RESP 18; O2SAT 98
[2024-06-30 08:30] VITALS: BP 140/70; PULSE 67; RESP 17; O2SAT 97
--- NOTE | 2024-06-30 09:34 | P.PCN_ITS ---
[facility] Loop Recorder Date: 06/30/24 Time: 09:35 Procedure Performed:: Implantation of loop recorder Indication:: History of CVA Technique:: Patient was brought to the cardiac [facility]. After informed consent obtained, 1% lidocaine with epinephrine was used to anesthetize the site along the left anterior aspect of the chest near the sternal border. Using the preformed scalpel, an incision was made and using the supplied preloaded apparatus, the loop recorder was placed subcutaneously without difficulty. Following the deployment of the loop recorder interrogation of the device was performed to ensure appropriate voltage was being detected. Once this was verified, Steri- Strips were placed over the incision and the patient was prepped to discharge home. Patient tolerated the procedure well with minimal discomfort. Impression:: Successful implantation of loop recorder Serial Number:: [employer] EL plus Model number [id number] Serial #[id number] Plan:: Routine postop care
== END 2024-06-30 08:50 | disposition home or self-care (01) ==
PROVIDERS: PCP Family Medicine; Visit Provider Internal Medicine
DX: I48.0 Paroxysmal atrial fibrillation (principal); F17.210 Nicotine dependence, cigarettes, uncomplicated; I25.10 Atherosclerotic heart disease of native coronary artery without angina pectoris; Z86.73 Personal history of transient ischemic attack (TIA), and cerebral infarction without residual deficits; I65.23 Occlusion and stenosis of bilateral carotid arteries; I10 Essential (primary) hypertension; Z79.899 Other long term (current) drug therapy
CPT/HCPCS: 33285; C1764

== ENCOUNTER 2024-07-14 12:41 | Outpatient (CLI) | payer MEDICARE, SELFPAY ==
--- NOTE | 2024-07-14 12:51 | CT_ITS ---
FINAL REPORT CLINICAL HISTORY: TAA COMPARISON: 07/02/2023 FINDINGS: Thin section axial CT images of the chest were obtained with contrast. 3D reformatted images were also obtained. This study was performed with techniques to keep radiation doses as low as reasonably achievable (ALARA). Individualized dose reduction techniques using automated exposure control or adjustment of mA and/or kV according to the patient''s size were employed. There is no evidence of pulmonary embolism. There is no evidence of thoracic aortic aneurysm or dissection. The ascending aorta measures 3.2 cm which is within normal limits. There is no evidence of mediastinal or hilar mass or adenopathy. Prior median sternotomy. There is mild emphysema and mild scarring. There is no evidence of pulmonary mass or nodule. No localized inflammatory process is seen within the lungs. Limited images of the upper abdomen are unremarkable. IMPRESSION: No evidence of pulmonary embolism. No mass or localized inflammatory process. Ascending aorta within normal limits. Reviewed, Interpreted and Dictated by Jerry Mills III, MD Transcribed by Sera Ny Authenticated and [facility]
[2024-07-14 13:16] LABS: Blood Urea Nitrogen 16 mg/dl (7-17); Estimated Glomerular Filt Rate 72 ml/min (>60); GFR (African American) 88 ML/MIN (>60)
[2024-07-14] MEDS: IOPAMIDOL-370 (76%);100ML BOTTLE 100 ML IV (13:48)
[2024-07-14] MEDS: SODIUM CHLORIDE 0.9% 10ML SYR (RAD ONLY) 10 ML IV (13:48)
[2024-07-14] MEDS: 0.9 % SODIUM CHLORIDE 50 ML VIAL IV (13:48)
== END 2024-07-14 23:59 | disposition home or self-care (01) ==
PROVIDERS: PCP Family Medicine; Visit Provider Nurse Practitioner Family
DX: I71.20 Thoracic aortic aneurysm, without rupture, unspecified (principal)
CPT/HCPCS: 36415; 71275; 82565; 84520; Q9967

== ENCOUNTER 2024-07-28 14:25 | Outpatient (CLI) | payer MEDICARE, SELFPAY ==
--- NOTE | 2024-07-28 14:27 | MM_ITS ---
PROCEDURE INFORMATION: Exam: MG Bilateral Screening 3D Mammography Exam date and time: 07/28/2024 2:11 PM Age: 64 years old Clinical indication: Screening mammogram TECHNIQUE: Imaging protocol: Bilateral Screening tomosynthesis and 2D mammography including computer-aided detection (CAD) when performed. COMPARISON: 1. MG SCBI MM Dig screening mamm BI w/CAD 10/19/2018 9:58 AM 2. MG MM [facility] M[facility] Sales Associate 09/15/2008 10:36 AM 3. MG MM [facility] [employer] Associate 09/07/2007 10:35 AM FINDINGS: MAMMOGRAPHY: Breast composition: There are scattered areas of fibroglandular density. Mass: None. Architectural distortion: No new or suspicious architectural distortion. Calcifications: No new or suspicious calcifications are present Asymmetric density: No new or suspicious asymmetric density is present Skin thickening: None. Axillary adenopathy: None. Left upper posterior wall loop recorder IMPRESSION: No mammographic evidence of malignancy. Recommend annual screening mammography unless otherwise clinically indicated. ASSESSMENT: BI-RADS category 1: Negative.
== END 2024-07-28 23:59 | disposition home or self-care (01) ==
LOC: RAD 14:26
PROVIDERS: PCP Nurse Practitioner; Visit Provider Nurse Practitioner
DX: Z12.31 Encounter for screening mammogram for malignant neoplasm of breast (principal)
CPT/HCPCS: 77063; 77067

== ENCOUNTER 2024-10-31 05:59 | Day surgery (SDC) | payer MEDICARE, SELFPAY ==
[2024-10-25 14:13] VITALS: BMI 24.7
[2024-10-31 06:28] VITALS: BP 149/79; PULSE 66; RESP 16; TEMP 36.2; O2SAT 98
[2024-10-31] MEDS: LACTATED RINGERS 1000ML 1,000 ML 25 ML IV (06:36)
--- NOTE | 2024-10-31 06:51 | P.PNANES_ITS ---
[facility] Disclaimer: The information contained in this section may have been updated after the patient was seen, as this information can be updated by other users. Medical History COPD (chronic obstructive pulmonary disease) History of stroke History of heart attack PAF (paroxysmal atrial fibrillation) Angina pectoris Surgical History Stented coronary artery S/P ascending aortic aneurysm repair Family History Other Cancer Hypertension Stroke Social History (Updated 10/31/24 @ 06:29 by Arely Roper RN) Smoking Status: Current some day smoker tobacco type: cigarettes packs per day: 5 second hand exposure: No alcohol intake: never substance use type: denies use current occupational status: disabled Travel in the last 8 weeks: None household members: spouse housing: house current occupational exposures/hazards: No caffeine: Yes [facility] Anesthesia Checklist Patient Identification Patient Identification: Arm Band and Family Structural Data Admitted From: Home Planned Operative Procedure/s: colonoscopy Consent for Planned Operative Procedure(s) Verified: Yes Verified Documents: Surgical Consent and History and Physical NPO Status Verified Time NPO: 00:00 Additional verifications Patient : No Anesthesia Reactions: No Hx Blood Transfusions: No Blood Transfusion Reaction: No Cephalosporin Allergy: Yes Previous Colonoscopy: Yes Airway Assessment Mallampati Score:: Class II C-Spine Mobility Assessed: Yes TMJ Mobility Assessed: Yes Dentition: Edentulous Neurological Assessment Level of Consciousness: Awake, Alert, Appropriate and Follows Commands Hx Seizures: No Numbness or tingling in extremities: No Anesthesia Plan Anesthesia Risk discussed: Yes ASA Class: III Anesthesia Type: MAC Preoperative Comments Pre-Operative Comments: Edentulous. CVA 2011, still affects speech. LA. Mitral vave repair. Hypertension. History of Polyps.
--- NOTE | 2024-10-31 07:30 | P.HP_ITS ---
History of Present Illness *Admission Date: 10/31/24 *Reason for visit:: Screening *History of present illness: Mrs. aWddell is a 64-year-old female who is here for surveillance colonoscopy. She does have a prior history of colonic polyps. The examination is deemed medically necessary for surveillance colonoscopy. The patient has been seen, interviewed and examined prior to the procedure by both myself and the anesthesia provider. [facility] Disclaimer: The information contained in this section may have been updated after the patient was seen, as this information can be updated by other users. Medical History (Updated 10/31/24 @ 07:36 by Moreno Rajput II, MD) COPD (chronic obstructive pulmonary disease) History of stroke History of heart attack PAF (paroxysmal atrial fibrillation) Angina pectoris Surgical History Stented coronary artery S/P ascending aortic aneurysm repair Family History Other Cancer Hypertension Stroke Social History (Updated 10/31/24 @ 06:29 by Arely Roper RN) Smoking Status: Current some day smoker tobacco type: cigarettes packs per day: 5 second hand exposure: No alcohol intake: never substance use type: denies use current occupational status: disabled Travel in the last 8 weeks: None household members: spouse housing: house current occupational exposures/hazards: No caffeine: Yes Other Medical History Have you received the Flu Vaccine for this season: No Have you received the Pneumonia Vaccine: No Review of Systems Review of Systems Review of systems (narrative): Negative *Cardiovascular Comments: Negative *Gastrointestinal Comments: Negative *Genitourinary Comments: Negative *Musculoskeletal Comments: Negative *Neurologic Comments: Negative Meds Home Medications and Allergies Home Medications ?Medication ?Instructions ?Recorded ?Confirmed ?Type psyllium husk 0.52 gram capsule 2.6 g PO DAILY 12/09/21 10/31/24 History (Daily Fiber) atorvastatin 80 mg tablet See Rx Instructions .Route 11/27/23 10/31/24 Rx .COMPLEX #90 tabs metoprolol succinate 50 mg See Rx Instructions .Route 05/09/24 10/31/24 Rx tablet,extended release 24 hr .COMPLEX #90 tabs lisinopril 5 mg tablet 5 mg PO DAILY #90 tabs 05/10/24 10/31/24 Rx fenofibrate nanocrystallized 145 145 mg PO ONCE 10/11/24 10/31/24 History mg tablet peg 3350-electrolytes 236 240 ml PO Q10M colonscopy #4,000 mL 10/19/24 10/31/24 Rx gram-22.74 gram-6.74 gram-5.86 gram solution (Golytely) clopidogrel 75 mg tablet (Plavix) See Rx Instructions .Route .COMPLEX 10/25/24 10/31/24 History New Prescriptions to Start Prescriptions: Allergies Allergy/AdvReac Type Severity Reaction Status Date / Time Penicillins (PENICILLINS) Allergy Unknown I-RASH Verified 10/31/24 06:23 iodine Allergy Shakiness Verified 10/31/24 06:23 bupropion (From Wellbutrin) AdvReac Other Verified 10/31/24 06:23 evolocumab (From Repatha AdvReac Itching Verified 10/31/24 06:23 SureClick) Exam Data for Last 24 hours Vital signs and Labs for Last 24 Hours: Temp Pulse Resp BP Pulse Ox O2 Del Method 97.2 F L 66 16 149/79 H 98 Room Air 10/31/24 06:28 10/31/24 06:28 10/31/24 06:28 10/31/24 06:28 10/31/24 06:28 10/31/24 06:28 *Routine HEENT Exam Head: Present normocephalic Eye: Present EOMI and PERRL ENT: Present mucous membranes moist *Routine Neck Exam Neck: Present supple *Routine Respiratory Exam Respiratory: Present CTA bilaterally *Routine Cardiovascular Exam Cardiovascular: Present RRR *Routine Abdominal Exam Abdominal: Present soft and normoactive bowel sounds; Absent tenderness *Routine Rectal Exam Rectal:: deferred *Routine Genitalia Exam Genitalia:: deferred *Routine Extremities Exam Extremities: Absent cyanosis, clubbing or edema *Routine Skin Exam Skin: Present warm; Absent rash *Routine Neurological Exam Neurological: Present alert and oriented X3 Assessment and Plan *Assessment and plan (1) Personal history of adenomatous and serrated colon polyps: Status: Acute Category: Medical Code(s): Z86.0101 - Personal history of adenomatous and serrated colon polyps Plan A/P: 1. Personal history of adenomatous colon polyps is the preprocedural diagnosis. The patient will be anesthetized/sedated using MAC sedation. The patient has been seen and examined. Cardiac and lung assessment prior to the examination is stable. Proceed with planned colonoscopy
[2024-10-31 07:35] VITALS: O2SAT 98
--- NOTE | 2024-10-31 07:49 | P.PNANES_ITS ---
[facility] Disclaimer: The information contained in this section may have been updated after the patient was seen, as this information can be updated by other users. Medical History (Updated 10/31/24 @ 07:36 by Moreno Rajput II, MD) COPD (chronic obstructive pulmonary disease) History of stroke History of heart attack PAF (paroxysmal atrial fibrillation) Angina pectoris Surgical History Stented coronary artery S/P ascending aortic aneurysm repair Family History Other Cancer Hypertension Stroke Social History (Updated 10/31/24 @ 06:29 by Arely Roper RN) Smoking Status: Current some day smoker tobacco type: cigarettes packs per day: 5 second hand exposure: No alcohol intake: never substance use type: denies use current occupational status: disabled Travel in the last 8 weeks: None household members: spouse housing: house current occupational exposures/hazards: No caffeine: Yes [facility] Anesthesia Checklist Patient Identification Patient Identification: Verbal (Name & ) Structural Data Admitted From: Inpatient Planned Operative Procedure/s: egd Consent for Planned Operative Procedure(s) Verified: Yes NPO Status Verified Time NPO: 00:00 Additional verifications Anesthesia Reactions: No Hx Blood Transfusions: No Blood Transfusion Reaction: No Cephalosporin Allergy: Yes Airway Assessment Mallampati Score:: Class II C-Spine Mobility Assessed: Yes TMJ Mobility Assessed: Yes Dentition: Good Dentition Neurological Assessment Level of Consciousness: Awake, Alert and Appropriate Anesthesia Plan Anesthesia Risk discussed: Yes Anesthesia Plan: Verified ASA Class: III Anesthesia Type: MAC
--- NOTE | 2024-10-31 07:52 | P.PCN_ITS ---
[facility] Procedure Note Date: 10/31/24 Time: 07:52 Procedure Note:: Colonoscopy Procedure Report: Colonoscopy with cold snare polypectomy and cold biopsies Endoscopist: Moreno Rajput II, MD Referring physician: Gagan Yap M.D. Date of Procedure: October 31, 2024 Equipment: Olympus 190 variable stiffness pediatric colonoscope Sedation: MAC sedation Indication: Mrs. Waddell is a 64-year-old female who is here for follow-up surveillance colonoscopy secondary to a personal history of adenomatous colon polyps. Her last colonoscopy was 5 years ago at which time 4 polyps were removed. She does have some chronic diarrhea with fecal urgency and intermittent fecal incontinence. She does use xluq-ukl-fvucwzq fiber pills. She also gets some urinary incontinence. She reports chronic lower back pain. She reports no abdominal pain, weight loss, change in her bowel habits, rectal bleeding or family history of colon cancer. Procedure: Prior to the procedure, a history and physical exam was performed, and patient's medications and allergies were reviewed. The risks, benefits and alternatives of the sedation and procedure were discussed with the patient. All questions were answered and informed consent was obtained. The patient was brought to the procedure room. Patient identification and proposed procedure were verified by the physician and the nurse. The patient was placed in a left lateral decubitus position and the scope was passed under direct vision. Throughout the procedure, the patient's blood pressure, pulse, and oxygen saturations were monitored continuously. The colonoscopy was accomplished without difficulty. The patient tolerated the procedure well. Findings: On digital rectal examination there was normal rectal tone. There were no external hemorrhoids. The colonoscope was introduced through the anal canal to the rectum and advanced to the cecum. The ileocecal valve and appendiceal orifice were identified. The scope was advanced a short distance into the ileum which appeared grossly normal. The scope was then withdrawn into the colon. The cecum, ascending and transverse colon were normal. Random biopsies were taken from the right colon to rule out microscopic colitis. There were 7 hyperplastic appearing polyps (sigmoid x 1 (5 mm), rectosigmoid x 4 (3, 3, 4, 4 mm) and rectum x 2 (3 and 4 mm)). These were all removed via cold snare polypectomy. The remainder of the left colon and mucosa were normal. There was a smaller rectal vault. Upon retroflexion within the rectum there were grade 1 internal hemorrhoids.The preparation was excellent throughout with [place] Preparation Score of 9. The cecal time was 12 minutes. Impression: 1. Diminutive hyperplastic appearing polyps x 7 2. Grade 1 internal hemorrhoids Plan: I will follow-up the polyp histology and if these are all hyperplastic polyps, I would recommend repeat surveillance colonoscopy in 7 to 10 years. I would continue bulking fiber supplementation. Based upon her more significant fecal and urinary incontinence and bowel control difficulty, I would consider s acral neuromodulation or Axonics. Both bowel function and bladder function are a delicate balance between the nerves and muscles. The nerves that arise from the sacral spine are very closely tied to bowel and bladder evacuation. This sacral nervous system allows you to recognize when your rectum and bladder are full and allows you to correctly contract muscles and hold on to stool and urine appropriately before or until you get to the bathroom. It also allows your bowel and bladder to evacuate fully. When this balance is upset there is incorrect communication between the brain and the nervous system. This can result in the inability to control the passage of liquid and/or solid stool, involuntary leakage and sometimes loss of bowel control. Initially conservative therapy such as dietary measures, fiber bulk, antidiarrheals and anti-spasmodic are utilized. However, when this is not providing the relief and affecting your bybvjzx-oh-avre, we must consider sacral neuromodulation with Axonics or InterStim. Electrical stimulation of the sacral nerve roots can restore continence in most persons. This is certainly less invasive and less costly than most treatments for significant stool leakage/fecal incontinence. An electrode is placed into the sacral portion of the back which provides low-grade stimulation via an implanted stimulator. Studies have shown improvements of anal sphincter tone, squeeze pressures and rectal sensation. It also significantly improves bladder evacuation difficulties. I do recommend Axonics or InterStim in persons who have concomitant urinary difficulties and chronic sacral back pain. I initially recommend the Axonics trial which is also called Basic Nerve Evaluation. This test involves placing a thin wire next to the nerves that control bowel function. If the trial is unsuccessful, we do not place Axonics.
[2024-10-31 07:54] VITALS: BP 105/60; PULSE 72; RESP 18; TEMP 36.4; O2SAT 99
[2024-10-31 08:04] VITALS: BP 102/56; PULSE 69; RESP 18; O2SAT 97
[2024-10-31 08:14] VITALS: BP 105/64; PULSE 70; RESP 18; O2SAT 98
[2024-10-31 08:24] VITALS: BP 106/65; PULSE 66; RESP 22; O2SAT 99
== END 2024-10-31 08:24 | disposition home or self-care (01) ==
PROVIDERS: PCP Family Medicine; Visit Provider Internal Medicine Gastroenterology
PROC: (CPT 45380; principal; 2024-10-31 07:30)
DX: Z86.0101 Personal history of adenomatous and serrated colon polyps (principal); K52.9 Noninfective gastroenteritis and colitis, unspecified; K63.5 Polyp of colon; K64.0 First degree hemorrhoids
CPT/HCPCS: 45380; 45385; 88305; J7120

== ENCOUNTER 2025-04-13 13:18 | Outpatient (CLI) | payer MEDICARE, SELFPAY ==
--- NOTE | 2025-04-13 | US_ITS ---
FINAL REPORT CLINICAL HISTORY: smoker, HLD, HTN, CVA, CO, CAD, STENTS, CABG FINDINGS: ANKLE-BRACHIAL PRESSURE INDICES Pressure indices are as follows: RIGHT LOWER EXTREMITY: Ankle-brachial pressure index: 0.68 Comments: Moderately depressed LEFT LOWER EXTREMITY: Ankle-brachial pressure index: 0.96 Comments: Mildly depressed IMPRESSION: Peripheral vascular disease is moderate on the right and mild on the left. Reviewed, Interpreted and Dictated by Carlos Bautista MD Transcribed by Sera Ny Authenticated and [facility]
--- OUTSIDE RECORDS SUMMARY | 2025-04-13 13:22 | XMS_ITS | Continuity of Care Document ---
Author Organization [facility], SURGERY SCHEDULE Address [address] [place] [id number] Assessment No assessment recorded. Plan of Treatment Reminders Order Date Submit Date Provider Last Modified By Organization Details Last Modified Time Details Appointments RECHECK 2024 11:00A M SHANE ALMANZA MD Not available Not available Not available Lab None recorded . Referral None recorded . Procedures None recorded . Surgeries None recorded . Imaging None recorded . Medication Orders None recorded . Patient TargetsNo targets recorded. Patient InstructionsNo instructions recorded. Reason for Referral None Reported. Problems Name Problem SNOMED Code Status Onset Date Resolution Date Notes Provider Name and Address Organization Details Recorded Time Urgent desire for stool 55443189 Active 2024 SHANE ALMANZA JR, MD [address] [place] [address], [phone] , [facility] 5 08:59:28 Mixed incontinence due to prolapse of female genital organ 606444714 Active 2024 SHANE ALMANZA JR, MD [address] [place] [address], [phone], [facility] 5 08:59:29 Incontinence of feces 54684010 Active 2024 SHANE ALMANZA JR, MD [address] [place] [address], [phone], [facility] 5 08:59:30 Urge incontinence of urine 38796081 Active 2024 SHANE ALMAZNA JR, MD [address] [place] [address], [phone], [facility] 5 08:59:31 Problem Notes None recorded. Procedures Surgical History Date Name Laterality Status Provider Name and Address Organization Details Recorded Time 02/23/20 25 PNE Implantation; Sacral Nerve completed SHAEN ALMANZA JR, MD [address] [place] [address], [phone], [facility] 02/22/2025 14:19:55 02/02/20 Post Void Residual; Ultrasound completed Emperatriz Arorason [facility] 02/01/2025 10:44:10 Hysterectomy completed Rosalinda Gonzalez [facility] 02/01/2025 10:50:08 Imaging Results None recorded. Procedure Notes None recorded. Medical Equipment None Reported. Allergies Allergen ID Allergen Name Allergen Category Reaction Reaction Severity Criticality Documentation Date Start Date Code Code System Note Provider Name and Address Organization Details Recorded Time 620971 Product containin g penicilli n (product) medicatio n Not available Not available Not available 02/01/2025 08544 8001 [facility] Medications Name Sig Start Date Stop Date Status Note LastModified by Organization Details LastModified Time Percocet 7.5 mg-325 mg tablet Take 1 tablet every 6 hours by oral route as needed. 025 active Not Available Not Available Not Avai lable doxycycline hyclate 100 mg capsule Take 1 capsule twice a day by oral route. 025 active Not Available Not Available Not Avai lable Vitals None Recorded Social History Question Answer Notes LastModified by Organizat ion Details LastModified Time Tobacco Smoking Status Current Every Day Smoker Not Available [employer] 02/01/2025 10:26:53 What Was The Date Of Your Most Recent Tobacco Screening? 03/01/2025 [email or web address] Information not available 03/01/2025 What Is Your Relationship Status? [email or web address] Information not available 02/01/2025 At What Age Did You Start Smoking Tobacco? 11 [email or web address] Information not available 02/01/2025 How Much Tobacco Do You Smoke? 1 PPW [email or web address] Information not available 02/01/2025 How Many Years Have You Smoked Tobacco? 56 [email or web address] Information not available 02/01/2025 Sex: Unknown Functional Status Question Answer Note LastModified by Organizat ion Details LastModified Time Do you or have you ever used any other forms of tobacco or nicotine? Yes [email or web address] Information not available 02/01/2025 What is your level of alcohol consumption? None -27 Information not available 02/01/2025 Do you or have you ever used smokeless tobacco? Never used smokeless tobacco [email or web address] Information not available 02/01/2025 Are you currently employed? No - Information not available 02/01/2025 Do you or have you ever used e-cigarettes or vape? Never used electronic cigarettes - Information not available 02/01/2025 Mental Status None recorded. Family History Relationship Description Onset Age of this Age Resolved Age Notes LastModified by Organization Details LastModified Time Brother Family history of malignant neoplasm API- Not available 2024 10:26:53 Medical History No medical history recorded. Gynecological History Statement/Question Response Female Hormone Problem N # of Pregnancies 3 Could you be now? N # of Births 2 Current Control Method Hysterectom y Uterus/Ovaries Problem N Obstetrics History GPAL:G 0 P 0 0 0 0 Past Encounters Encounter ID Performer Location Encounter Start Date Encounter Closed Date Diagnosis/Indication Diagnosis SNOMED-CT Code Diagnosis ICD10 Code Diagnosis Note [id number] SHANE ALMANZA JR, MD [facility] [address] [place] [address] [address] [place] [address] 02/01/2025 10:26:52 02/01/2025 10:53:41 Urge incontinence of urine 49505214 N39.41 Peripheral nerve evaluation planned due to significan t urgency symptoms. No anticholin ergics per gastroente rologist. Awaiting nerve evaluation outcome. Incontinence of feces 72 036345 R15.9 Managed with fiber supplement s. No new interventi ons. Continue current management until nerve evaluation . Mixed inco ntinence due to prolapse of female genital organ 905677287 N39.46 Neuromodul ation considered for urgency. Anticholin ergics avoided. Peripheral nerve evaluation planned. Urgent favio tiffanie for stool 16835018 R15.2 Neuromodul ation and peripheral nerve evaluation planned. [id number] SHANE ALMANZA JR, MD SURGERY SCHEDULE [address] [place] [address] 02/22/2025 11:32:08 02/22/2025 11:33:15 Urge incontinence of urine 81451702 N39.41 Peripheral nerve evaluation planned due to significan t urgency symptoms. No anticholin ergics per gastroente rologist. Awaiting nerve evaluation outcome. Health Concerns Section Related Observation LastModified by Organization Detai ls LastModified Time None Recorded Concern Status LastModified by Organization Details LastModified Time None Recorded Payers Encounter Date Sequence Insurance Name Policy Number Policy Gaona Covered Member ID Gaona Member ID Guarantor Name 02/22/2025 1 BC[employer]: [place] [employer] (MEDICARE REPLACEMENT HMO) [id number] Cici Saud Bairon [id number] Cici Waddell Notes Date Note Type Note Provider Name and Address Organization Details Recorded Time 02/22/2025 text/html The patient is a 64-year-old female presenting with urinary urgency incontinence. Daily episodes of urgency incontinence require diaper use. Coughing or sneezing aggravates it. Fecal incontinence occurs sporadically, recently noted a week ago. Fiber pills used with limited success. G.I. specialist against anticholinergics due to bowel effects. Hysterectomy history of 20 years. No bladder surgeries or medication history for the condition. Plan for peripheral nerve evaluation. SHANE ALMANZA JR, MD [address] [place], [phone], [facility] 02/22/2025 14:20:21 OBGyn Episode No OBEpisode recorded.
--- OUTSIDE RECORDS SUMMARY | 2025-04-13 13:22 | XMS_ITS | Continuity of Care Document ---
Author Organization [facility] [place] [facility] [facility] Address [address] [place] [address] Assessment Encounter Date Assessment Date Assessment LastModified by Organization Details LastModified Time 03/01/2025 03/01/2025 64-year-old fema le with history of urinary and fecal incontinence presenting with follow-up for these conditions. Peripheral nerve evaluation reveals symptom improvement greater than 50%. Anticholinergic therapy is not recommended due to gastrointestinal concerns. Neuromodulation via axonix implantation is advised to manage fecal incontinence, with stages planned. [email or web address] Not available 03/05/2025 17:20:30 Plan of Treatment Reminders Order Date Submit Date Provider Last Modified By Organization Details Last Modified Time Details Appointments RECHECK 2024 11:00A Winsome ALMANZA MD Not available Not available Not available Lab None recorded. Referral None recorded. Procedures percutane ous implantat ion of neurostim ulator electrode array; sacral nerve (transfor aminal placement ) including image guidance (PROC) - AXONICS STAGE I & II NEUROMODU LATION - MAC 2024 025 [email or web address] [facility], [address] [facility], [address], [place], [address], 03/21/2025 15:34:03 Surgeries sacral neuromodu lation stage 1 (SURG) 2024 025 [email or web address] Not available 03/08/2025 08:41:38 sacral neuromodu lation stage 2 (SURG) 2024 025 [email or web address] Not available 04/04/2025 11:22:39 Imaging None recorded. Medication Orders None recorded. Patient TargetsNo targets recorded. Patient Instructions Encounter Date Encounter Id Patient Instructions Last Modified By Organization Details Last Modified Time 03/01/2025 [id number] - Follow up closely after each stage of axonix implantation. - Notify immediately if experiencing any new or worsening symptoms. - Maintain any current supportive care as advised. - Contact with any questions or concerns about the procedure or symptoms. [email or web address] Not available 03/05/2025 17:20:34 Reason for Referral None Reported. Problems Name Problem SNOMED Code Status Onset Date Resolution Date Notes Provider Name and Address Organization Details Recorded Time Urgent desire for stool 48097476 Active 2024 SHANE ALMANZA JR, MD [address] [place] [address], [address], [facility] 08:59:28 Mixed incontinence due to prolapse of female genital organ 813913600 Active 2024 SHANE ALMANZA JR, MD [address] [place] [address], [address], [facility] 08:59:29 Incontinence of feces 74856342 Active 2024 SHANE ALMANZA JR, MD [address] [place] [address], [address], [facility] 08:59:30 Urge incontinence of urine 87491902 Active 2024 SHANE ALMANZA JR, MD [address] [place] [address], [address], [facility] 08:59:31 Problem Notes None recorded. Procedures Surgical History Date Name Laterality Status Provider Name and Address Organization Details Recorded Time 02/23/20 25 PNE Implantation; Sacral Nerve completed SHANE ALMANZA JR, MD [address] [place] [address], [address], [facility] 02/22/2025 14:19:55 02/02/20 Post Void Residual; Ultrasound completed Emperatriz Rodríguez [facility] 02/01/2025 10:44:10 Hysterectomy completed Rosalinda Gnozalez [facility] 02/01/2025 10:50:08 Imaging Results None recorded. Procedure Notes None recorded. Medical Equipment None Reported. Allergies Allergen ID Allergen Name Allergen Category Reaction Reaction Severity Criticality Documentation Date Start Date Code Code System Note Provider Name and Address Organization Details Recorded Time 724115 Product containin g penicilli n (product) medicatio n Not available Not available Not available 02/01/2025 97010 8001 SNOMED [facility] 10:49:47 Medications Name Sig Start Date Stop [...] Available Not Available Not Avai lable Vitals Date Recorded Body height Body mass index (BMI) Body weight Provider Name and Address Organization Details Last Updated DateTime 03/01/2025 157.48 cm 26.5 kg/m2 49149.89 g [facility] 03/01/2025 09:43:21 Social History Question Answer Notes LastModified by Organizat ion Details LastModified Time Tobacco Smoking Status Current Every Day Smoker Not Available [employer] 02/01/2025 10:26:53 What Was The Date Of Your Most Recent Tobacco Screening? 03/01/2025 [email or web address] Information not available 03/01/2025 What Is Your [...] is your level of alcohol consumption? None [email or web address] Information not available 02/01/2025 Do you or have you ever used smokeless tobacco? Never used smokeless tobacco [email or web address] Information not available 02/01/2025 Are you currently employed? No [email or web address] Information not available 02/01/2025 Do you or have you ever used e-cigarettes or vape? Never used electronic cigarettes [email or web address] Information not available 02/01/2025 Mental Status None recorded. Family History Relationship Description Onset Age of this Age Resolved Age Notes LastModified by Organization Details LastModified Time Brother Family history of malignant neoplasm [email or web address] Not available 2024 10:26:53 Medical History No [...] SNOMED-CT Code Diagnosis ICD10 Code Diagnosis Note [id number] SHANE ALMANZA JR, MD [facility] [address] [place] [address] 02/01/2025 10:26:52 02/01/2025 10:53:41 Urge incontinence of urine 49944280 N39.41 Peripheral nerve evaluation planned due to significan t urgency symptoms. No anticholin ergics per gastroente rologist. Awaiting nerve evaluation outcome. Incontinence of feces 72 939258 R15.9 Managed with fiber supplement s. No new interventi ons. Continue current management until nerve evaluation . Mixed inco ntinence due to prolapse of female genital organ 592960045 N39.46 Neuromodul ation considered for urgency. Anticholin ergics avoided. Peripheral nerve evaluation planned. Urgent favio tiffanie for stool 36384806 R15.2 Neuromodul ation and peripheral nerve evaluation planned. [id number] SHANE ALMANZA JR, MD SURGERY SCHEDULE [address] [place] [address] 02/22/2025 11:32:08 02/22/2025 11:33:15 Urge incontinence of urine 92095257 N39.41 Peripheral nerve evaluation planned due to significan t urgency symptoms. No anticholin ergics per gastroente rologist. Awaiting nerve evaluation outcome. [id number] SHANE ALMANZA JR, MD [facility] [address] [place] [address] 03/01/2025 09:23:34 03/01/2025 09:58:37 Incontinence of feces 10442017 R15.9 Improvemen t noted following nerve evaluation . Neuromodul ation with axonix implantati on planned, consent obtained. Discussion s included risks, benefits, and alternativ es. Urge incon tinence of urine 70704019 N39.41 Reports significan t improvemen t post evaluation . Anticholin ergic therapy is not advised due to gastrointe stinal issues. Monitor and support ongoing management efforts. Health Concerns Section Related Observation LastModified by Organization Detai ls LastModified Time None Recorded Concern Status LastModified by Organization Details LastModified Time None Recorded Payers Encounter Date Sequence Insurance Name Policy Number Policy Gaona Covered Member ID Gaona Member ID Guarantor Name 03/01/2025 1 [place] BC[place] OF [facility] [employer] PLUS (MEDICARE REPLACEMENT HMO) [id number] Cici Waddell [id number] Cici Waddell Notes Date Note Type Note Provider Name and Address Organization Details Recorded Time 03/01/2025 text/html The patient is a 64-year-old female presenting with follow-up for urinary and fecal incontinence. Peripheral nerve evaluation shows over 50% improvement. Urgency urinary incontinence involves sudden, compelling need to urinate. Fecal incontinence entails involuntary bowel control loss. Both issues have a notable reduction in symptoms following evaluation. Anticholinergic therapy is contraindicated by her client delivery manager due to bowel concerns. The patient is interested in neuromodulation for fecal incontinence, with axonix implantation planned in two stages. The patient is a 64-year-old female presenting [...] nerve evaluation. SHANE ALMANZA JR, MD [address] [place], [address], [facility] 03/06/2025 19:55:34 OBGyn Episode No OBEpisode recorded.
--- OUTSIDE RECORDS SUMMARY | 2025-04-13 13:22 | XMS_ITS | Continuity of Care Document ---
Author Organization [facility], SURGERY SCHEDULE Address [address] [place] [address] Assessment Encounter Date Assessment Date Assessment LastModified by Organization Details LastModified Time 03/31/2025 03/31/2025 Pre-op diagnosis : Urgency incontinence Postop diagnosis: Urgency incontinence Procedure: Implantation of neuromodulation device stages I and II with complex intraoperative programming, Axonics kit Anesthesia local MAC Complications none Operative report: After consent is obtained patient brought to the operating suite where she is placed in supine position. She is then placed in the prone position padding all pressure points. Local MAC anesthesia was induced. She was sterilely prepped and draped in the normal fashion. We used fluoroscopic guidance and identified S3 foramen on both sides. We able to stimulate the S3 foramen and had good motor responses on both sides. The S3 foramen on the left side had better motor responses and we decided to use this S3 foramen for implantation of our device. Using the Seldinger technique and the kit provided we placed our permanent lead under fluoroscopic guidance. We had good motor responses at all 4 electrodes. The lead was then tunneled over to a subcutaneous pocket overlying the right hip. The generator was then secured to the lead and intraoperative programming was carried out successfully. Subcutaneous tissues were brought together using 3-0 Vicryl. Skin was brought together and Dermabond. Please note that irrigation was performed using Irrisept. Anesthesia was reversed. Patient was taken to the recovery room in stable condition. [email or web address] Not available 03/31/2025 08:04:26 Plan of Treatment Reminders Order Date Submit Date Provider Last Modified By Organization Details Last Modified Time Details Appointments RECHECK 2024 11:00A Winsome ALMANZA MD Not available Not available Not available Lab None recorded. Referral None recorded. Procedures None recorded. Surgeries None recorded. Imaging None recorded. Medication Orders Percocet 7.5 mg-325 mg tablet 2024 025 [facility], [address], [address], 03/31/2025 08:05:25 doxycycli ne hyclate 100 mg capsule 2024 025 [facility], [address], [address], 03/31/2025 08:05:24 Patient TargetsNo targets recorded. Patient InstructionsNo instructions recorded. Reason for Referral None Reported. Problems Name Problem SNOMED Code Status Onset Date Resolution Date Notes Provider Name and Address Organization Details Recorded Time Urgent desire for stool 35461014 Active 2024 SHANE ALMANZA JR, MD [address] [place] [address], [address], [facility] 08:59:28 Mixed incontinence due to prolapse of female genital organ 547536102 Active 2024 SHANE ALMANZA JR, MD [address] [place] [address], [address], [facility] 08:59:29 Incontinence of feces 73545612 Active 2024 SHANE ALMANZA JR, MD [address] [place] [address], [address], [facility] 08:59:30 Urge incontinence of urine 96787039 Active 2024 SHANE ALMANZA JR, MD [address] [place] [address], [address], [facility] 08:59:31 Problem Notes None recorded. Procedures Surgical History Date Name Laterality Status Provider Name and Address Organization Details Recorded Time 02/23/20 PNE Implantation; Sacral Nerve completed SHANE ALMANZA JR, MD [address] [place] [address], [address], [facility] 02/22/2025 14:19:55 03/05/20 25 Post Void Residual; Ultrasound completed Emperatriz Rodríguez [facility] 02/01/2025 10:44:10 Hysterectomy completed Rosalinda Gonzaelz [facility] 02/01/2025 10:50:08 Imaging Results None recorded. Procedure Notes None recorded. Medical Equipment None Reported. Allergies Allergen ID Allergen Name Allergen Category Reaction Reaction Severity Criticality Documentation Date Start Date Code Code System Note Provider Name and Address Organization Details Recorded Time 201554 Product containin g penicilli n (product) medicatio n Not available Not available Not available 02/01/2025 85241 8001 SNOMED Rosalinda Gonzalez [facility] 10:49:47 Medications Name Sig Start Date Stop [...] Of Your Most Recent Tobacco Screening? 03/01/2025 [email or web address] Information not available 03/01/2025 What Is Your [...] SNOMED-CT Code Diagnosis ICD10 Code Diagnosis Note [id number] SHANE ALMANZA JR, MD [facility] [address] [facility] [place] [address] 03/01/2025 09:23:34 03/01/2025 09:58:37 Incontinence of feces 36146164 R15.9 Improvemen t noted following nerve evaluation . Neuromodul ation with axonix implantati on planned, consent obtained. Discussion s included risks, benefits, and alternativ es. Urge incon tinence of urine 53042701 N39.41 Reports significan t improvemen t post evaluation . Anticholin ergic therapy is not advised due to gastrointe stinal issues. Monitor and support ongoing management efforts. [id number] SHANE ALMANZA JR, MD SURGERY SCHEDULE [address] [place] [address] 03/31/2025 06:14:18 03/31/2025 06:14:50 Postoperative pain 557236696 G89.18 Health Concerns Section Related Observation LastModified by Organization Detai ls LastModified Time None Recorded Concern Status LastModified by Organization Details LastModified Time None Recorded Payers Encounter Date Sequence Insurance Name Policy Number Policy Gaona Covered Member ID Gaona Member ID Guarantor Name 03/31/2025 1 [place]MEDICARE REPLACEMENT HMO) [id number] Cici Waddell [id number] Cici Messina Episode No OBEpisode recorded.
--- OUTSIDE RECORDS SUMMARY | 2025-04-13 13:22 | XMS_ITS | Data Portability ---
Author Organization [facility] Address [address] [facility] [address] [place] [address] Assessment Encounter Date Assessment Date Assessment LastModified by Organization Details LastModified Time 02/01/2025 02/01/2025 64-year-old fema le with a history of mixed urinary incontinence, urgency urinary incontinence, fecal urgency, and fecal incontinence presenting with incontinence symptoms. Mixed incontinence complicates management. Neuromodulation considered for urgency symptoms. Anticholinergics not viable. Peripheral nerve evaluation planned, consent obtained. Stress Urinary Incontinence: Mild stress incontinence managed without change. Neuromodulation not effective. Urgency Urinary Incontinence: Neuromodulation discussed. Anticholinergics contraindicated. Peripheral nerve evaluation consented. [email or web address] Not available 02/03/2025 14:08:19 03/01/2025 03/01/2025 64-year-old fema le with history of urinary and fecal incontinence presenting with follow-up for these conditions. Peripheral nerve evaluation reveals symptom improvement greater than 50%. Anticholinergic therapy is not recommended due to gastrointestinal concerns. Neuromodulation via axonix implantation is advised to manage fecal incontinence, with stages planned. [email or web address] Not available 03/05/2025 17:20:30 03/31/2025 03/31/2025 Pre-op diagnosis : Urgency incontinence [...] NEUROMODU LATION - MAC 2024 025 [email or web address] [facility], [address] [place] [address], [address], 03/21/2025 15:34:03 interstim periphera l nerve evaluatio n (PROC) - PERIPHERA L NERVE EVALUATIO N W/ AXONICS - LOCAL 2024 025 [email or web address] [facility], [address] [address], [place], [address], 03/09/2025 15:53:25 Surgeries sacral neuromodu lation stage 1 (SURG) 2024 025 [email or web address] Not available 03/08/2025 08:41:38 sacral neuromodu lation stage 2 (SURG) 2024 025 [email or web address] Not available 04/04/2025 11:22:39 Imaging None recorded. Medication Orders Percocet 7.5 mg-325 mg tablet 2024 025 [facility], [address], [address], 03/31/2025 08:05:25 doxycycli ne hyclate 100 mg capsule 2024 025 [facility], [address], [address], 03/31/2025 08:05:24 Patient TargetsNo targets recorded. Patient Instructions Encounter Date Encounter Id Patient Instructions Last Modified By Organization Details Last Modified Time 02/01/2025 [id number] - Continue using fiber supplements as prescribed. - Await further instructions after the peripheral nerve evaluation for urinary incontinence. - Contact the office if symptoms worsen or in case of new symptoms. [email or web address] Not available 02/03/2025 14:08:21 03/01/2025 [id number] - Follow up closely after each stage [...] Details Recorded Time Urgent desire for stool 28357020 Active 2024 SHANE ALMANZA JR, MD [address] [place] [address], [address], [facility] 08:59:28 Mixed incontinence due to prolapse of female genital organ 318927040 Active 2024 SHANE ALMANZA JR, MD [address] [place] [address], [address], [facility] 08:59:29 Incontinence of feces 70484852 Active 2024 SHANE ALMANZA JR, MD [address] [place] [address], [address], [facility] 08:59:30 Urge incontinence of urine 73948021 Active 2024 SHANE ALMANZA JR, MD [address] [place] [address], [address], [facility] 08:59:31 Problem Notes None recorded. Procedures Surgical History Date Name Laterality Status Provider Name and Address Organization Details Recorded Time 02/23/20 25 PNE Implantation; Sacral [place] [address] [place] [address], [address], [facility] 02/22/2025 14:19:55 02/02/20 Post Void Residual; Ultrasound completed Emperatriz Marcos [facility] 02/01/2025 10:44:10 Hysterectomy completed [facility] 02/01/2025 10:50:08 Imaging Results None recorded. Procedure Notes None recorded. Medical Equipment None Reported. Allergies Allergen ID Allergen Name Allergen Category Reaction Reaction Severity Criticality Documentation Date Start Date Code Code System Note Provider Name and Address Organization Details Recorded Time 300692 Product containin g penicilli n (product) medicatio n Not available Not available Not available 02/01/2025 86588 8001 SNOMED [facility] 10:49:47 Medications Name Sig Start Date Stop [...] and Address Organization Details Last Updated DateTime 02/01/2025 157.48 cm 26.5 kg/m2 87665.89 g [facility] 02/01/2025 10:49:25 Date Recorded Body height Body mass index (BMI) Body weight Provider Name and Address Organization Details Last Updated DateTime 03/01/2025 157.48 cm 26.5 kg/m2 79965.89 g [facility] 03/01/2025 09:43:21 Social History Question Answer Notes LastModified by Organizat ion Details LastModified Time Tobacco Smoking Status Current Every Day Smoker Not Available [employer] 02/01/2025 10:26:53 What Was The Date Of Your Most Recent Tobacco Screening? 03/01/2025 [email or web address] Information not available 03/01/2025 What Is Your [...] SNOMED-CT Code Diagnosis ICD10 Code Diagnosis Note [id number] SHANE ALMANZA JR, MD [facility] [address] [facility] [place] [address] 02/01/2025 10:26:52 02/01/2025 10:53:41 Urge incontinence of urine 55450971 N39.41 Peripheral nerve evaluation planned due to significan t urgency symptoms. No anticholin ergics per gastroente rologist. Awaiting nerve evaluation outcome. Incontinence of feces 72 331998 R15.9 Managed with fiber supplement s. No new interventi ons. Continue current management until nerve evaluation . Mixed inco ntinence due to prolapse of female genital organ 126221572 N39.46 Neuromodul ation considered for urgency. Anticholin ergics avoided. Peripheral nerve evaluation planned. Urgent favio tiffanie for stool 85500309 R15.2 Neuromodul ation and peripheral nerve evaluation planned. [id number] SHANE ALMANZA JR, MD SURGERY SCHEDULE [facility] [place] [address] 02/22/2025 11:32:08 02/22/2025 11:33:15 Urge incontinence of urine 29682412 N39.41 Peripheral nerve evaluation planned due to significan t urgency symptoms. No anticholin ergics per gastroente rologist. Awaiting nerve evaluation outcome. [id number] SHANE ALMANZA JR, MD [facility] [address] [place] [address] 03/01/2025 09:23:34 03/01/2025 09:58:37 Incontinence of feces 37297245 R15.9 Improvemen t noted following nerve evaluation . Neuromodul ation with axonix implantati on planned, consent obtained. Discussion s included risks, benefits, and alternativ es. Urge incon tinence of urine 33096377 N39.41 Reports significan t improvemen t post evaluation . Anticholin ergic therapy is not advised due to gastrointe stinal issues. Monitor and support ongoing management efforts. [id number] SHANE ALMANZA JR, MD SURGERY SCHEDULE [address] [place] [address] 03/31/2025 06:14:18 03/31/2025 06:14:50 Postoperative pain 182848500 G89.18 Health Concerns Section Related Observation LastModified by Organization Detai ls LastModified Time None Recorded Concern Status LastModified by Organization Details LastModified Time None Recorded Advance Directives Directive None Recorded Payers Insurance Date Sequence Insurance Name Policy Number Policy Gaona Covered Member ID Gaona Member ID Guarantor Name 04/10/2025 PAYMENT PLAN Cici Waddell 04/10/2025 1 ALICE: [place] (MEDICARE REPLACEMENT HMO) [id number] Cici Waddell [id number] Cici Waddell Notes Date Note Type Note Provider Name and Address Organization Details Recorded Time 02/01/2025 text/html The patient is a 64-year-old female [...] peripheral nerve evaluation. SHANE ALMANZA JR, MD [address] [place] [address], [address], [facility] 02/06/2025 08:59:52 02/22/2025 text/html The patient is a 64-year-old [...] peripheral nerve evaluation. SHANE ALMANZA JR, MD [address] [place] [address], [address], [facility] 02/22/2025 14:20:21 03/01/2025 text/html The patient is a 64-year-old female presenting with follow-up for urinary and fecal incontinence. Peripheral nerve evaluation shows over 50% improvement. Urgency urinary incontinence involves sudden, compelling need to urinate. Fecal incontinence entails involuntary bowel control loss. Both issues have a notable reduction in symptoms following evaluation. Anticholinergic therapy is contraindicated by her binder operator due to bowel concerns. The patient is [...] nerve evaluation. SHANE ALMANZA JR, MD [address] [place], [address], [facility] 03/06/2025 19:55:34 OBGyn Episode No OBEpisode recorded.
== END 2025-04-13 23:59 | disposition home or self-care (01) ==
LOC: RT 13:19
PROVIDERS: PCP Family Medicine; Visit Provider Physician Assistant
DX: I70.203 Unspecified atherosclerosis of native arteries of extremities, bilateral legs (principal); E87.6 Hypokalemia; I10 Essential (primary) hypertension; E78.5 Hyperlipidemia, unspecified; F17.200 Nicotine dependence, unspecified, uncomplicated; I63.9 Cerebral infarction, unspecified; I21.9 Acute myocardial infarction, unspecified; Z95.1 Presence of aortocoronary bypass graft
CPT/HCPCS: 93923

== ENCOUNTER 2025-04-27 10:54 | Day surgery (SDC) | payer MEDICARE, SELFPAY ==
[2025-04-27] VITALS (12 sets, daily range): BP systolic 101–129; BP diastolic 50–71; PULSE 48–70; RESP 16–18; O2SAT 92–98; BMI 27.2
--- NOTE | 2025-04-27 07:09 | IR_ITS ---
APPROVED REPORT Patient Location: Outpatient PROCEDURES Catheter placement in the right external iliac artery Right external iliac artery antegrade angiogram with unilateral runoff to the right foot Catheter placement in the left external iliac artery Left external iliac artery antegrade angiogram with unilateral runoff to the left foot Catheter placed in the distal abdominal aorta Abdominal aortogram Right femoral arterial access Right retrograde femoral angiogram Balloon mounted coated stent deployment to the right common iliac artery INDICATION Abnormal VAISHNAVI, [place] claudication class III, 30 mm gradient from the aorta to the right common femoral artery, Right common iliac artery aneurysm, Peripheral artery disease, Informed consent was obtained prior to the procedure. COMPLICATIONS NONE Estimated Blood Loss: LESS THAN 10 ML TECHNIQUE 1% lidocaine used to anesthetize the right anterior aspect of the right wrist. The right radial artery was accessed via the central technique and an arterial cocktail using 5000U heparin, 2.5 mg verapamil, 1mg lidocaine and 800mcg nitroglycerin into the right radial sheath intra-arterially. A PV multi curve catheter was then placed into the right external iliac artery and unilateral antegrade angiography was performed with runoff to the right foot. This was repeated in the left external iliac artery. The catheter was then pulled back into the distal abdominal aorta where distal abdominal aortography was performed. Following this 1% lidocaine was used anesthetize right groin and the right femoral artery was accessed via the Salinger technique. A 7 Lebanese sheath is placed in the right femoral artery. Aortic pressure was measured along with common femoral artery pressure from each sheath where a 30 mm trans stenotic gradient was identified at the aneurysmal and stenotic level of the right common iliac artery. Because of this therapeutic Was administered given a therapeutic ACT and an advantage wire was advanced through the right groin into the distal abdominal aorta. Using the right radial artery access and PV multi curve antegrade angiography was performed in order to perfectly placed the stent in the proximal right common iliac artery making sure to avoid the right internal iliac artery. The stent was deployed at 14 sunshine reducing the aneurysm and stenosis to 0% stenosis with near occlusion of the aneurysm. After achieving excellent angiograph results the apparatus was removed the groin is reprepped closure change sheath was removed and hemostasis was achieved using Perclose device and the right radial sheath was then removed with good hemostasis being achieved by TR banding. Patient was transferred to the postop putting in stable condition ANGIOGRAPHIC RESULTS This abdominal aorta is atheromatous but patent Right common iliac artery has an ostial proximal 40% stenosis with aneurysmal dilatation. The right internal iliac artery has a proximal 70% tandem stenosis. The right external iliac artery is widely patent with mild concentric atheromatous plaque the right common femoral artery has mid vessel 30 to 40% plaque. The right profunda femoris artery is widely patent. The right superficial femoral artery has a proximal concentric 60% stenosis and then is widely patent into Norberto's canal where an additional concentric 40% stenosis is identified. The popliteal artery has diffuse 30 and 40% atheromatous plaque and gives rise to a patent anterior tibialis artery and patent peroneal artery. The right posterior tibialis artery is occluded proximally. There is two-vessel runoff into the right foot Left common internal and external iliac arteries are patent. Left common femoral artery is patent in the left profunda femoris artery has a proximal 30% stenosis while the proximal left SFA has concentric smooth 30% stenosis. There is additional 3040 and 50% stenosis within Norberto's canal and in the mid to proximal popliteal artery. At the infrageniculate level there is additional 40% popliteal stenosis. There is three-vessel runoff below the knee on the left side IMPRESSION Right common iliac artery aneurysm associated with a 30 mm Hinton stenotic gradient Successful stenting of the right common iliac artery aneurysm and atheromatous plaque reducing the aneurysm and plaque with a balloon mounted coated stent Two-vessel runoff below the knee on the right side Moderate SFA and popliteal disease as described bilaterally Three-vessel runoff below the knee on the left side PLAN 1. Xarelto 2.5 twice daily plus aspirin 81 mg daily 2. LDL less than 55 achieved high intensity statin 3. Physical therapy 4. Risk factor modification Electronically signed by : Scott Dubois MD 04/27/2025 14:54:06
[2025-04-27 11:10] LABS: Basophils % 0.5 % (0.1-2.0); Eosinophils # 0.3 Kmm3 (0.0-0.4); Hematocrit 39.5 % (37.0-47.0); Hemoglobin 12.7 g/dL (12.2-16.2); Immature Granulocytes # 0.02 10^3uL; Immature Granulocytes % 0.2 %; Lymphocytes # 3.1 K/mm3 (0.7-4.5); Lymphocytes % 37.5 % (10-50); Mean Corpuscular HGB Conc 32.2 g/dL (31.8-35.4); Mean Corpuscular Hemoglobin 29.2 pg (27.0-31.2); Mean Corpuscular Volume 90.8 fl (81-99); Mean Platelet Volume 10.9 fl (7.4-10.4); Monocytes # 0.6 K/mm3 (0.1-1.0); Monocytes % 6.8 % (1.7-9.3); Neutrophils # 4.2 K/mm3 (1.8-7.8); Nucleated Red Blood Cells # 0 10^3/uL; Nucleated Red Blood Cells % 0 %; Platelet Count 210 K/mm3 (142-424); Red Blood Count 4.35 M/mm3 (4.20-5.40); Red Cell Distribution Width 14.9 % (11.5-17.5); White Blood Count 8.3 K/mm3 (4.8-10.8)
[2025-04-27 11:28] LABS: Alanine Aminotransferase 23 U/L (12-78); Albumin Level 4.4 g/dl (3.5-5.0); Alkaline Phosphatase 81 U/L (38-126); Aspartate Amino Transferase 37 U/L (14-36); Bilirubin,Direct 0.2 mg/dl (0.0-0.4); Bilirubin,Indirect 0.3 mg/dL (0.0-0.9); Bilirubin,Total 0.5 mg/dl (0.2-1.3); Bilirubin,Unconjugated 0.3 mg/dL (0.0-1.1); Blood Urea Nitrogen 14 mg/dl (7-17); Calcium 9.2 mg/dl (8.4-10.2); Carbon Dioxide 28 mmol/L (22.0-30.0); Chloride 110 mmol/L (98-107); Chol/HDL Ratio 4.3 (1-3.5); Cholesterol 163 mg/dl (140-200); Creatinine Clearance Estimated 61 mL/min (50-200); Estimated Glomerular Filt Rate 56 ml/min (>60); GFR (African American) 68 ML/MIN (>60); Glucose 99 mg/dl (74-100); HDL Cholesterol 38 mg/dl (40-60); Magnesium 1.9 mg/dl (1.6-2.3); Sodium 143 mmol/L (136-145); Total Protein,Serum 7.8 g/dl (6.3-8.2); Triglycerides 153 mg/dl (30-150); VLDL Cholesterol 31 mg/dL (0-40)
[2025-04-27 11:35] LABS: Anion Gap 8.8 mEq/L (5-15); Potassium 3.8 mmoL/L (3.5-5.1)
[2025-04-27 11:39] LABS: Direct LDL Cholesterol 95.93 mg/dL (100-129)
[2025-04-27 11:58] LABS: Thyroid Stimulating Hormone 1.96 uIU/mL (0.465-4.68)
[2025-04-27 12:04] LABS: Free T4 (Free Thyroxine) 1.15 ng/dl (0.78-2.19)
[2025-04-27] MEDS: 0.9 % SODIUM CHLORIDE 500 ML 25 ML IV (12:28)
[2025-04-27] MEDS: HEPARIN 1,000 UNITS/500ML NS (CATH LAB) 3000 UNIT IV (12:28)
[2025-04-27] MEDS: diphenhydrAMINE 50MG/ML VIAL 50 MG IV (12:30)
[2025-04-27] MEDS: LIDOCAINE 1% 10ML MDV 10 ML IJ (12:32)
[2025-04-27] MEDS: NITROGLYCERIN 800MCG/8ML SYR (CATH LAB) 800 MCG IA (12:32)
[2025-04-27] MEDS: VERAPAMIL 2.5MG/ML 2ML VIAL 2.5 MG IV (12:32)
[2025-04-27] MEDS: MIDAZOLAM HCL 1MG/ML 5ML VIAL 1 MG IV (12:33)
[2025-04-27] MEDS: METHYLPREDNISOLONE SOD SUCC 125MG VIAL 125 MG IV (12:33)
[2025-04-27] MEDS: FAMOTIDINE 20MG/2ML VIAL 20 MG IV (12:33)
[2025-04-27] MEDS: HEPARIN 1,000 UNITS/ML 10ML VIAL (CATH LAB) 5000 UNIT IV (12:33)
[2025-04-27] MEDS: FENTANYL 100MCG/2ML VIAL 50 MCG IV (12:34)
[2025-04-27 15:20] LABS: CATHL Activated Clotting Time > 400 SEC (74-125)
[2025-04-27] MEDS: IOHEXOL-240 100ML BOTTLE 250 ML IV (15:26)
== END 2025-04-27 16:20 | disposition home or self-care (01) ==
LOC: CATHLAB 10:55
PROVIDERS: Physician Assistant; PCP Family Medicine; Visit Provider Internal Medicine
DX: I72.3 Aneurysm of iliac artery (principal); I70.213 Atherosclerosis of native arteries of extremities with intermittent claudication, bilateral legs; I25.10 Atherosclerotic heart disease of native coronary artery without angina pectoris; I10 Essential (primary) hypertension; E78.2 Mixed hyperlipidemia; J44.9 Chronic obstructive pulmonary disease, unspecified; I25.2 Old myocardial infarction; Z86.73 Personal history of transient ischemic attack (TIA), and cerebral infarction without residual deficits; Z95.5 Presence of coronary angioplasty implant and graft; F17.210 Nicotine dependence, cigarettes, uncomplicated; Z79.899 Other long term (current) drug therapy; Z88.0 Allergy status to penicillin; Z88.8 Allergy status to other drugs, medicaments and biological substances; Z91.041 Radiographic dye allergy status; Z79.02 Long term (current) use of antithrombotics/antiplatelets; Z79.82 Long term (current) use of aspirin; Z82.49 Family history of ischemic heart disease and other diseases of the circulatory system
CPT/HCPCS: 37236; 36415; 80048; 80061; 80076; 83735; 84439; 84443; 85025; 85347; 99152; 99153; C1725; C1760; C1769; C1874; C1894; J1200; J1644; J2919; J3010; J7040; Q9966

== ENCOUNTER 2025-10-19 07:59 | Outpatient (CLI) | payer MEDICARE, OTHER, SELFPAY ==
--- NOTE | 2025-10-19 | CA_ITS ---
APPROVED REPORT Exam: Pharmacologic Technologist: Merced Kruger Ht: 5 ft 2 in Wt: 144 lbs BSA: 1.66 m2 HR: 67 bpm BP: 129/56 mmHg Rhythm: Sinus rhythm Medical History Medications: Metoprolol Cardiac Risk Factors: HTN, Hyperlipidemia, Smoking Stress Test Details HR Resting HR: 67 bpm Max Heart Rate (APMHR): 155.990807 bpm Target HR (85% APMHR): 131.306431 bpm Recovery HR: 102 bpm BP Resting BP: 129.0/56.0 mmHg Recovery BP: 123.0/56.0 mmHg ECG Resting ECG: Sinus rhythm Stress ECG Conclusion During lexiscan pt experinced no symptoms. PAC and PVC noted. Less than 0.5mm upsloping ST segment changes. Nondiagnostic ECG/lexiscan. Electronically signed by : Jennifer Ely MD 10/19/2025 15:18:27
--- NOTE | 2025-10-19 08:00 | NM_ITS ---
APPROVED REPORT Exam: Nuclear Stress Test Indication: cp..soa Patient Location: Outpatient Stress Tech: Merced Kruger OR Tech:Dori Gutierrez MAKENNALeola RT(R)(N) Ht: 5 ft 3 in Wt: 145 lbs Bra Size: 36c HR: 67 bpm BP: 129/56 mmHg BSA: 1.69 m2 TID: 1.27 BMI: 25.6 History: cp..soa Procedure: Patient received 0.4 mg of intravenous Lexiscan, resting heart rate 67 bpm, resting blood pressure 129/56 mmHg, with Lexiscan maximum heart rate achieved was 113 bpm which is 85 % of the maximum predicted heart rate and blood pressure was 112/57 mmHg. With Lexiscan, patient denied any complaint of chest pain. Cardiac Stress and Resting SPECT Images: Cardiac Stress and Resting SPECT images were obtained using technetium 99m Myoview 32.8 mCi stress and 10.43 mCi at rest. Resting and stress imaging in supine and prone positions demonstrate no evidence of fixed or reversible perfusion defects. There is increase in transient ischemic dilatation ratio (TID 1.27), which may be suggestive of possible multivessel disease or balanced ischemia. Gated imaging demonstrates normal global LV systolic function. LVEF is calculated at 64%. Conclusion: No evidence of fixed or reversible perfusion defects. There is increase in transient ischemic dilatation ratio (TID 1.27), which may be suggestive of possible multivessel disease or balanced ischemia. Gated imaging demonstrates normal global LV systolic function. LVEF is calculated at 64%. Electronically signed by : Jennifer Ely MD 10/19/2025 15:22:06
--- OUTSIDE RECORDS SUMMARY | 2025-10-19 08:02 | XMS_ITS | Data Portability ---
Author Organization [facility] Address [address] [place] [address] Assessment Encounter Date Assessment Date Assessment LastModified [...] stable condition. [email or web address] Not available 03/31/2025 08:04:26 05/08/2025 05/08/2025 64-year-old fema le with history of urgency urinary incontinence presenting for follow-up post-neuromodulati on device implantation. Notable symptomatic relief observed with the use of Axonics device. Improvement expected to continue, and incision well-healed. Urgency Urinary Incontinence: - Post-Axonics implantation improvement noted. - Follow-up annually unless earlier issues present. Neuromodulation Device Implantation: - Incision sites well-healed. Monitoring devices completed by Gideon. [email or web address] Not available 05/08/2025 10:57:59 Plan of Treatment Reminders Order Date Submit Date Provider Last Modified By Organization Details Last Modified Time Details Appointments RECHECK 2025 09:45A Winsome ALMANZA MD Not available Not available Not available Lab None recorded. Referral None recorded. Procedures percutane ous implantat ion of neurostim ulator electrode array; sacral nerve (transfor aminal placement ) including image guidance (PROC) - AXONICS STAGE I & II NEUROMODU LATION - MAC 2024 025 [email or web address] [facility] Of Service Professional Charges, [facility] [facility], [facility] [address], [place], [address], 03/21/2025 15:34:03 interstim periphera l nerve evaluatio n (PROC) - PERIPHERA L NERVE EVALUATIO N W/ AXONICS - LOCAL 2024 025 [email or web address] [facility] Of Service Professional Charges, [address] [facility], [facility] [address], [place], [address], 03/09/2025 15:53:25 Surgeries sacral neuromodu lation stage 1 (SURG) 2024 025 [email or web address] Not available 03/08/2025 08:41:38 sacral neuromodu lation stage 2 (SURG) 2024 025 [email or web address] Not available 04/04/2025 11:22:39 Imaging None recorded. Medication Orders Percocet 7.5 mg-325 mg tablet 2024 025 [facility], [address], [address], 03/31/2025 08:05:25 doxycycli ne hyclate 100 mg capsule 2024 025 [facility], [address], [address], 03/31/2025 08:05:24 Patient TargetsNo targets recorded. Patient Instructions Encounter Date Encounter Id Patient Instructions Last Modified By Organization Details Last Modified Time 02/01/2025 [id number] - Continue using fiber supplements as prescribed. - Await further instructions after the peripheral nerve evaluation for urinary incontinence. - Contact the office if symptoms worsen or in case of new symptoms. [email or web address] Not available 02/03/2025 14:08:21 03/01/2025 [id number] - Follow up closely after each stage of axonix implantation. - Notify immediately if experiencing any new or worsening symptoms. - Maintain any current supportive care as advised. - Contact with any questions or concerns about the procedure or symptoms. [email or web address] Not available 03/05/2025 17:20:34 05/08/2025 [id number] - Schedule next follow-up in one year. - Contact the clinic if symptoms of urgency return or any new issues arise. - Continue device management as instructed by Gideon. [email or web address] Not available 05/08/2025 10:58:02 Reason for Referral None Reported. Problems Name Problem SNOMED Code Status Onset Date Resolution Date Notes Provider Name and Address Organization Details Recorded Time Urgent desire for stool 86876479 Active 2024 SHANE ALMANZA JR, MD [address] [place] [address], [phone], [facility] 08:59:28 Mixed incontinence due to prolapse of female genital organ 513323390 Active 2024 SHANE ALMANZA JR, MD [address] [place] [address], [phone] , [facility] 08:59:29 Incontinence of feces 94813609 Active 2024 SHANE ALMANZA JR, MD [address] [place] [phone] , [facility] 08:59:30 Urge incontinence of urine 40906949 Active 2024 SHANE ALMANZA JR, MD [address] [place] [address], [phone] , [facility] 08:59:31 Problem Notes None recorded. Procedures Surgical History Date Name Laterality Status Provider Name and Address Organization Details Recorded Time 02/23/20 25 PNE Implantation; Sacral Nerve completed SHANE ALMANZA JR, MD [address] [place] [address], [phone], [facility] 02/22/2025 14:19:55 02/02/20 25 Post Void Residual; Ultrasound completed Emperatriz Rodríguez [facility] 02/01/2025 10:44:10 Hysterectomy completed Rosalinda Gonzalez [facility] 02/01/2025 10:50:08 Imaging Results None recorded. Procedure Notes None recorded. Medical Equipment None Reported. Allergies Allergen ID Allergen Name Allergen Category Reaction Reaction Severity Criticality Documentation Date Start Date Code Code System Note Provider Name and Address Organization Details Recorded Time 015822 Product containin g penicilli n (product) medicatio n Not available Not available Not available 02/01/2025 57744 8001 SNOMED Rosalinda Gonzalez [facility] 10:49:47 Medications Name Sig Start Date Stop [...] Updated DateTime 02/01/2025 157.48 cm 26.5 kg/m2 98981.89 g [facility] 02/01/2025 10:49:25 Date Recorded Body height Body mass index (BMI) Body weight Provider Name and Address Organization Details Last Updated DateTime 03/01/2025 157.48 cm 26.5 kg/m2 55721.89 g [facility] 03/01/2025 09:43:21 Date Recorded Body height Body mass index (BMI) Body weight Provider Name and Address Organization Details Last Updated DateTime 05/08/2025 157.48 cm 26.5 kg/m2 74721.89 g Daxa Eber [facility] 05/08/2025 10:48:09 Social History Question Answer Notes LastModified by Organizat ion Details LastModified Time Tobacco Smoking Status Current Every Day Smoker Not Available Jean 02/01/2025 10:26:53 What Was The Date Of Your Most Recent Tobacco Screening? 03/01/2025 [email or web address] Information not available 03/01/2025 What Is Your [...] Diagnosis SNOMED-CT Code Diagnosis ICD10 Code Diagnosis IMO Codes Diagnosis Note [id number] SHANE ALMANZA JR, MD [facility] [address] [place] [address] 02/01/2025 10:26:52 02/01/2025 10:53:41 Urge incontinence of urine 27907565 N39.41 Peripheral nerve evaluation planned due to significan t urgency symptoms. No anticholin ergics per gastroente rologist. Awaiting nerve evaluation outcome. Incontinence of feces 72 970664 R15.9 Managed with fiber supplement s. No new interventi ons. Continue current management until nerve evaluation . Mixed inco ntinence due to prolapse of female genital organ 554928560 N39.46 Neuromodul ation considered for urgency. Anticholin ergics avoided. Peripheral nerve evaluation planned. Urgent favio tiffanie for stool 77781353 R15.2 Neuromodul ation and peripheral nerve evaluation planned. [id number] SHANE ALMANZA JR, MD SURGERY SCHEDULE [address] [place] [address] 02/22/2025 11:32:08 02/22/2025 11:33:15 Urge incontinence of urine 85103312 N39.41 Peripheral nerve evaluation planned due to significan t urgency symptoms. No anticholin ergics per gastroente rologist. Awaiting nerve evaluation outcome. [id number] SHANE ALMANZA JR, MD [facility] [address] [place] [address] 03/01/2025 09:23:34 03/01/2025 09:58:37 Incontinence of feces 38772773 R15.9 Improvemen t noted following nerve evaluation . Neuromodul ation with axonix implantati on planned, consent obtained. Discussion s included risks, benefits, and alternativ es. Urge incon tinence of urine 09130301 N39.41 Reports significan t improvemen t post evaluation . Anticholin ergic therapy is not advised due to gastrointe stinal issues. Monitor and support ongoing management efforts. [id number] SHANE ALMANZA JR, MD SURGERY SCHEDULE [address] [place] [address] 03/31/2025 06:14:18 03/31/2025 06:14:50 Postoperative pain 602017694 G89.18 [id number] SHANE ALMANZA JR, MD [facility] [address] [place] [phone] 05/08/2025 10:25:18 05/08/2025 11:07:17 Urge incontinence of urine 87151455 N39.41 Reports significan t improvemen t post evaluation . Anticholin ergic therapy is not advised due to gastrointe stinal issues. Monitor and support ongoing management efforts. Incontinence of feces 72 574724 R15.9 Health Concerns Section Related Observation LastModified by Organization Detai ls LastModified Time None Recorded Concern Status LastModified by Organization Details LastModified Time None Recorded Advance Directives Directive None Recorded Payers Insurance Date Sequence Insurance Name Policy Number Policy Gaona Covered Member ID Gaona Member ID Guarantor Name 06/13/2025 PAYMENT PLAN Cici Waddell 05/29/2025 1 ALICE: [place] OF [place] - [employer] (MEDICARE REPLACEMENT HMO) [id number] Cici Waddell [id number] Cici Waddell Notes Date Note Type [...] peripheral nerve evaluation. SHANE ALMANZA JR, MD [address] [place] [address], [phone], [facility] 02/06/2025 08:59:52 02/22/2025 text/html The patient is [...] peripheral nerve evaluation. SHANE ALMANZA JR, MD [address] [place] [address], [phone], [facility] 02/22/2025 14:20:21 03/01/2025 text/html The patient is a 64-year-old female presenting with follow-up for urinary and fecal incontinence. Peripheral nerve evaluation shows over 50% improvement. Urgency urinary incontinence involves sudden, compelling need to urinate. Fecal incontinence entails involuntary bowel control loss. Both issues have a notable reduction in symptoms following evaluation. Anticholinergic therapy is contraindicated by her pulley man due to bowel concerns. The patient is [...] peripheral nerve evaluation. SHANE ALMANZA JR, MD [address] [place] [address], [phone], [facility] 03/06/2025 19:55:34 05/08/2025 text/html The patient is a 64-year-old female presenting with follow-up for urgency urinary incontinence. Post neuromodulation device implantation in March 2025, the patient has noticed significant symptomatic improvement. Initial symptoms consisted of frequent urge to urinate without control. Post-surgically, these episodes have reduced, demonstrating therapeutic efficacy of the Axonics stages 1 and 2 implantation. Incision sites have healed appropriately. The patient is monitored and reassured during this visit with Gideon's involvement for device reassessment. SHANE ALMANZA JR, MD [address] [place], [address], [facility] 05/28/2025 21:29:18 OBGyn Episode No OBEpisode recorded.
--- OUTSIDE RECORDS SUMMARY | 2025-10-19 08:02 | XMS_ITS | Clinical Summary ---
[facility] Address [address] [place] [address] Care Team Providers Care Credit Reporter Name Role Phone Jakub Yap MD Primary Care Provider [phone] Allergies Active Allergy Reactions Criticality Noted Date Comments Bupropion Rash Low 2023 Penicillins Hives High 11/25/2018 Medications aspirin 81 MG chewable tablet Chew 1 tablet Daily. Active atorvastatin (LIPITOR) 80 MG tablet Take 1 tablet by mouth Daily. Active lisinopril (PRINIVIL,ZESTR IL) 5 MG tablet Take 1 tablet by mouth Daily. 30 tablet 3 06/22/2021 12:55 PM EDT 06/22/2021 Active clopidogrel (PLAVIX) 75 MG tablet Take 1 tablet by mouth Daily. 06/20/2022 Active levocetirizine (XYZAL) 5 MG tablet Take 1 tablet by mouth Every Evening. Active metoprolol succinate XL (TOPROL-XL) 50 MG 24 hr tablet Take 1 tablet by mouth Daily. 05/29/2022 Active nicotine (NICODERM CQ) 14 MG/24HR patch Place 1 patch on the skin as directed by provider Daily. Active PSYLLIUM HUSK PO Take by mouth. 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 Volume overload versus infection versus ARDS 06/20/2021 07/17/2022 Postoperative anemia due to acute blood loss 07/17/2022 Severe hypophosphatemia. Resolved 06/18/2021 06/20/2021 Family History Medical History Relation Name Comments Cancer Brother Hypertension Father Hypertension Mother Relation Name Status Comments Brother Father Mother Alive Social History Tobacco Use Types Packs/Day Years Used Date Smoking Tobacco: Every Day Cigarettes 0.3 52.9 Started: 11/25/1972 Smokeless Tobacco: Never Tobacco Cessation:Ready to Q uit: Not Asked; Counseling Given: Not Answered Comments:less than 1/2 pack per day as of 07/17/22, less than 1/4 pack 06/2024 Alcohol Use Standard Drinks/Week Comments No 0 (1 standard drink = 0.6 oz pur e alcohol) AUDIT-C Answer Date Recorded Q1: How often do you have a drink containing alc ohol? Never 05/16/2021 Average Number of Drinks Not on file 021 Frequency of Binge Drinking Not on file 04/30 Abuse Screen Answer Date Recorded Unsafe at Home or Work/School Not on file Feels Threatened by Someone? Not on file 10/2023 Does Anyone Keep You from Co ntacting Others or Doint Things Outside the Home? Not on file 09/10/2023 Physical Sign of Abuse Present Not on file 1 Housing Stability Answer Date Recorded Current Living Arrangements Not on file 08/30 Potentially Unsafe Housing Conditions Not on robin e 09/10/2023 Family and Community Support Answer Landry e Recorded Help with Day-to-Day Activities Not on file 09/10/2023 Lonely or Isolated Not on file 09/10/2023 Employment Answer Date Recorded Do you want help finding or keeping work or a jose b? Not on file 09/10/2023 Disabilities Answer Date Recorded Concentrating, Remembering, or Making Decisions Difficulty Not on file 09/10/2023 Doing Errands Independently Difficulty Not on fi le 09/10/2023 Education Answer Date Recorded Help with school or training? 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 Not on file Not on file Last Filed Vital Signs Vital Sign Reading Time Taken Comments Blood Pressure 124/64 07/21/2024 11:11 AM EDT Pulse 70 07/21/2024 11:10 AM EDT Temperature 36.1 C (96.9 F) 07/21/2024 11:10 AM EDT Respiratory Rate 18 06/22/2021 7:00 AM EDT Oxygen Saturation 98% 07/21/2024 11: 10 AM EDT Inhaled Oxygen Concentration - - Weight 64 kg (141 lb 3.2 oz) 07/21/2024 11:10 AM EDT Height 157.5 cm (5' 2.01 ) 07/21/2024 1 1:10 AM EDT pt reported Body Mass Index 25.82 07/21/2024 11:10 AM EDT Plan of Treatment Health Maintenance Due Date Last Done Comments DXA SCAN 1960 Pneumococcal Vaccine 50+ (1 of 2 - PCV) 1979 TDAP/TD VACCINES (1 - Tdap) 1979 MAMMOGRAM 2000 COLOGUARD 2005 COLON CANCER SCREENING 5 YEA R SIGMOIDOSCOPY 2005 COLONOSCOPY [address] CANCER SCREENING 2005 CT COLONOGRAPHY 2005 FECAL OCCULT BLOOD TEST 2005 FIT Testing (1 year) 2005 ZOSTER VACCINE (1 of 2) 2010 ANNUAL WELLNESS VISIT 11/25/2018 HEPATITIS C SCREENING 11/25/2018 COVID-19 Vaccine (2 - Jansse n risk series) 09/18/2021 08/21/2021 LIPID PANEL 06/22/2022 06/22/2021 INFLUENZA VACCINE 06/30/2025 09/14/2018, 10/02/2016 LUNG CANCER SCREENING Discontinued 07/14/2024 , 06/26/2022, 04/16/2021 Medical Devices Implanted Type Area Diesel Technology Instructor Device Identifier Shelf Expiration Date Model / Serial / Lot Clipapplr M/ Endo Ligaclip 9 3/8in Sm - [id number] Implanted:Qty: 1 on 06/18/2021 by Chris Joshua MD at [facility] Implant Right: Leg [employer] J [employer] J 02/01/2026 [facility]20 / / Grft Hemashld Wovn Str [id number] Plat - [id number] Implanted:Qty: 1 on 06/18/2021 by Chris Joshua MD at [facility] Implant N/A: Aorta MAQUET 05/29/2025 [id number] / / [id number] Adhs Surg Bioglue Pref Std/Tp 10ml - [id number] Implanted:Qty: 1 on 06/18/2021 by Chris Joshua MD at [facility] Implant N/A: Heart CRYOLIFE 01/13/2022 [id number] / / [id number] S Incisionline Pledget Sft 9x4x1.5mm Pk/6 - [id number] Implanted:Qty: 1 on 06/18/2021 by Chris Joshua MD at [facility] Implant N/A: Heart [employer] J [employer] J 09/29/2025 [id number] / / [id number] [facility] Radiomark Disk Ro Qiana - [id number] Implanted:Qty: 1 on 06/18/2021 by Chris Joshua MD at [facility] Implant N/A: Heart [employer] 08/13/2025 [id number] / / [id number] Hemost Abs Surgicel Fibrillar 2x4in - [id number] Implanted:Qty: 2 on 06/18/2021 by Chris Joshua MD at [facility] Implant N/A: Heart [employer] J [employer] J 03/29/2023 [id number] / / [id number] Procedures Procedure Name Priority Date/Time Associated Diagnosis Comments CT ANGIOGRAM CHEST W WO CONTRAST Routine 07/14/2024 Thoracic aortic aneurysm without rupture, unspecified part LIPID PANEL Routine 06/22/2021 4:09 AM EDT from Last 3 Months or Most Recently Relevant to Health Maintenance Results * CT Angiogram Chest (07/14/2024) Anatomical Region Laterality Modality Chest, Vascular N/A Computed Tomogra phy Kaley Hernandez MASONRY CONTRACTOR ADMINISTRATOR IMG CT ORDERABLES Final Result * (ABNORMAL) Lipid Panel (06/22/2021 4:09 AM EDT) Total Cholesterol 118 0 - 200 mg/dL 06/22/2021 6:42 AM EDT [facility] Triglycerides 217(H) 0 - 150 mg/dL 06/22/2021 6:42 AM EDT [facility] HDL Cholesterol 25(L) 40 - 60 mg/dL 06/22/2021 6:42 AM EDT [facility] LDL Cholesterol 57 0 - 100 mg/dL 06/22/2021 6:42 AM EDT [facility] VLDL Cholesterol 36 5 - 40 mg/dL 06/22/2021 6:42 AM EDT [facility] LDL/HDL Ratio 1.98 06/22/2021 6:42 AM EDT [facility] Blood Venipuncture / Unknown 06/22/2021 4:09 AM EDT 06/22/2021 5:23 AM EDT Narrative [facility] - 06/22/2021 6:42 AM EDT Cholesterol Reference Ranges (U.S. Department of Health and Human Services ATP III Classifications) Desirable <200 mg/dL Borderline High 200-239 mg/dL High Risk >240 mg/dL Triglyceride Reference Ranges (U.S. Department of Health and Human Services ATP III Classifications) Normal <150 mg/dL Borderline High 150-199 mg/dL High 200-499 mg/dL Very High >500 mg/dL HDL Reference Ranges (U.S. Department of Health and Human Services ATP III Classifcations) Low <40 mg/dl (major risk factor for CHD) High >60 mg/dl ('negative' risk factor for CHD) LDL Reference Ranges (U.S. Department of Health and Human Services ATP III Classifcations) Optimal <100 mg/dL Near Optimal 100-129 mg/dL Borderline High 130-159 mg/dL High 160-189 mg/dL Very High >189 mg/dL Analia Tejada PA-C LAB BLOOD ORDERABLES Final Result [facility]
[address] [place] [address], [place] [phone] from Last 3 Months or Most Recently Relevant to Health Maintenance Insurance [employer]VANT[employer] Advance Directives * CPR (Attempt to Resuscitate) (Latest Code Status on File) Date Activated Date Inactivated Comments 06/18/2021 1:51 PM 06/22/2021 3:41 PM Question Answer Comments Code Status (Patient has no pulse and is not breathing): CPR (Attempt to Resuscitate) Medical Interventions (Patie nt has pulse or is breathing): Full Care Teams Credit Reporter Relationship Specialty Start Date End Date Jakub Yap MD [address] [place] [address] PCP - General Family Medicine 07/11/24
--- OUTSIDE RECORDS SUMMARY | 2025-10-19 08:02 | XMS_ITS | Clinical Summary ---
Author Organization Healthcare [facility] [address] [place] [id number] Care Team Providers Care Economics Department Chair Name Role Phone Pcp, No Primary Care Provider Unavailabl e Social History Tobacco Use Types Packs/Day Years Used Date Smoking Tobacco: Never Assessed Comments Unknown Sex and Gender Information Value Date Recorded Sex Assigned at Not on file Legal Sex Female 8:51 PM EDT Gender Identity Not on file Sexual Orientation Not on file Plan of Treatment Health Maintenance Due Date Last Done Comments [facility]-Bone Density Scan 1960 [facility]-Depression Screening 1960 [facility]-Hepatitis C Screening 1960 [facility]-Medicare Annual Wellness (AWV) 1960 [facility]-/Child/Adol SDOH Screenings 1960 [facility]- SDOH Screenings 1978 [facility]-Adult SDOH Screenings 1978 [facility]-DTaP,Tdap,and Td Vaccine s (1 - Tdap) 1979 [facility]-Pap Smear 1981 [facility]-Cervical Cancer Screening 1990 [facility]-HPV/Cotest 1990 CT Colonography 2005 Colonoscopy 2005 FIT-DNA 2005 FIT 2005 FOBT 2005 Sigmoidoscopy 2005 [facility]-Colorectal Cancer Screening 2005 [facility]-Breast Cancer Screening 2010 [facility]-Pneumococcal Vaccine: 50 + Years (1 of 1 - PCV) 2010 [facility]-Zoster Vaccines (1 of 2) 2010 NCR-[id number] Vaccine (2 - season) 2025 08/21/2021 [facility]-Influenza Vaccine (#1) 07/31/202509/14, 10/02/2016 [facility]-RSV Vaccine: 60+ Years o r (1 - 1-dose 75+ series) 2035 [facility]-Hepatitis A Vaccines Aged Out 018, 09/14/2018 No longer eligible based on patient's age to complete this topic [facility]-Diabetes: Hemoglobin A1C Discontinued 06/17/2021 HPV Vaccines Aged Out No longer eligi ble based on patient's age to complete this topic [facility]-HIB Vaccines Aged Out No longer e ligible based on patient's age to complete this topic [facility]-IPV Vaccines Aged Out No longer e ligible based on patient's age to complete this topic [facility]-Rotavirus Vaccines Aged Out No lo nger eligible based on patient's age to complete this topic Insurance [employer] MEDICARE Care Teams Economics Department Chair Relationship Specialty Start Date End Date Pcp, Malia [address] [place] [address] PCP - General Family Medicine 11/30/20
[2025-10-19 09:40] VITALS: BP 129/56; PULSE 67; RESP 14
[2025-10-19] MEDS: ISOTOPE MYOVIEW (PER STUDY) 1 DOSE IV (10:26)
[2025-10-19] MEDS: SODIUM CHLORIDE 0.9% 10ML SYR (RAD ONLY) 10 ML IV ×2 (10:27)
--- NOTE | 2025-10-19 10:30 | US_ITS ---
FINAL REPORT CLINICAL HISTORY: claudication,PAD decreased pedal pulses, peripheral stent RLE, current smoker, HTN, HLD, HX TIA/CVA COMPARISON: 04/12/2025 FINDINGS: ANKLE-BRACHIAL PRESSURE INDICES Pressure indices are as follows: RIGHT LOWER EXTREMITY: Ankle-brachial pressure index: 0.98 Comments: Normal LEFT LOWER EXTREMITY: Ankle-brachial pressure index: 1.18 Comments: Normal CONCLUSION: No evidence of significant obstructive peripheral vascular disease of the lower extremities Reviewed, Interpreted and Dictated by Carlos Bautista MD Transcribed by Mildred Rodríguez Authenticated and [facility]
== END 2025-10-19 23:59 | disposition home or self-care (01) ==
LOC: RAD 07:59
PROVIDERS: PCP Family Medicine; Visit Provider Physician Assistant
DX: I49.1 Atrial premature depolarization (principal); I49.3 Ventricular premature depolarization; I25.10 Atherosclerotic heart disease of native coronary artery without angina pectoris; I73.9 Peripheral vascular disease, unspecified; R09.89 Other specified symptoms and signs involving the circulatory and respiratory systems; R94.39 Abnormal result of other cardiovascular function study; Z95.828 Presence of other vascular implants and grafts; F17.200 Nicotine dependence, unspecified, uncomplicated; E78.5 Hyperlipidemia, unspecified; I10 Essential (primary) hypertension
CPT/HCPCS: 78452; 93017; 93018; 93923; A9502; J2785